=== PATIENT | female | born 1990 | race Hispanic/Latino ===

== ENCOUNTER 2019-09-07 12:08 | Outpatient (CLI) | payer BC, SELFPAY ==
[2019-09-07 13:14] LABS: Hematocrit 32.1 % (37.0-47.0); Hemoglobin 10.7 g/dL (12.0-15.0); Mean Corpuscular HGB Conc 33.3 g/dl (32-36); Mean Corpuscular Hemoglobin 31.5 pg (26-34); Mean Corpuscular Volume 94.4 fl (80-100); Mean Platelet Volume 11.5 fl (7.4-10.4); Platelet Count Result 237 k/mm3 (150-375); Red Cell Distribution Width 12.2 % (11.5-14.5); White Blood Count 9.8 K/mm3 (4.5-10.0)
[2019-09-07 13:39] LABS: Hepatitis B Surface Antigen Negative (Negative); Rubella IgG Antibody 2.9 IU/ML
[2019-09-07 13:43] LABS: HIV 1/2 Ab P24 Ag Result Negative (Negative)
[2019-09-09 07:40] LABS: Rapid Plasma Reagin Non-Reactive (NonReactive)
[2019-09-10 08:12] LABS: Varicella IgG Antibody <135.00 Index (>=165.00)
== END 2019-09-07 12:09 | disposition home or self-care (01) ==
PROVIDERS: PCP Obstetrics & Gynecology; Visit Provider Obstetrics & Gynecology
DX: N92.5 Other specified irregular menstruation (principal)
CPT/HCPCS: 36415; 85027; 86592; 86644; 86703; 86747; 86762; 86787; 86850; 86900; 86901; 87077; 87086; 87088; 87186; 87340; G0432

== ENCOUNTER 2019-09-12 11:13 | Outpatient (CLI) | payer BC, SELFPAY ==
--- NOTE | ~2019-09-12 | US_ITS ---
EXAMINATION: US OB /maternal detail DATE: 09/12/2019 12:36 INDICATION: Second trimester anatomic survey TECHNIQUE: Real-time ultrasound of the pelvis was performed. COMPARISON: None. FINDINGS: There is a single living fetus in vertex presentation. The placenta is posterior. heart rate is 154 beats per minute (bpm). cardiac activity and movement are noted. The amniotic fluid index is subjectively normal. The following anatomy was identified as normal: 4 chamber heart 3 vessel cord cord insertion kidneys urinary bladder stomach spine diaphragm ventricles cisterna magna cerebellum The following biometric data were obtained: Biparietal diameter (BPD): 6.6 cm; head circumference (HC): 25.1 cm; abdominal circumference (AC): 23 .7 cm; femur length (FL): 5.2 cm. These measurements are concordant. Estimated weight is 1140 g +/- 171 g, which correlates with the 11th percentile when 11/29/2019 i s used as estimated date of delivery. As single measurements, these parameters are each equal to the following estimated gestational ages w ith ranges of +/- 2 standard deviations: BPD: 26 weeks 6 days ( 24 weeks 5 days - 29 weeks 1 days). HC: 27 weeks 3 days ( 25 weeks 2 days - 29 weeks 3 days). AC: 28 weeks 0 days ( 25 weeks 6 days - 30 weeks 2 days). FL: 28 weeks 0 days ( 25 weeks 6 days - 30 weeks 1 days). estimated gestational age based solely on measurements from this exam is 27 weeks 4 days +/- 2 weeks 0 days. IMPRESSION: 1. Single living fetus in vertex presentation. 2. Estimated weight is 1140 g +/- 171 g, which correlates with the 11th percentile when 0 is used as estimated date of delivery. Reviewed, dictated and finalized at location A. IMPRESSION: 1. Single living fetus in vertex presentation. 2. Estimated weight is 1140 g +/- 171 g, which correlates with the 11th p ercentile when 11/29/2019 is used as estimated date of delivery.
== END 2019-09-12 11:14 | disposition home or self-care (01) ==
PROVIDERS: PCP Obstetrics & Gynecology; Visit Provider Obstetrics & Gynecology
DX: Z36.89 Encounter for other specified antenatal screening (principal); Z3A.00 Weeks of gestation of pregnancy not specified
CPT/HCPCS: 76805

== ENCOUNTER 2019-09-28 10:48 | Outpatient (CLI) | payer BC, SELFPAY ==
[2019-09-28 12:31] LABS: Hematocrit 31.3 % (37.0-47.0); Hemoglobin 10.3 g/dL (12.0-15.0)
[2019-09-28 12:46] LABS: Glucose 1 Hour PP 50gm Dose 114 mg/dL
[2019-09-28 13:26] LABS: HIV 1/2 Ab P24 Ag Result Negative (Negative)
== END 2019-09-28 10:49 | disposition home or self-care (01) ==
PROVIDERS: PCP Obstetrics & Gynecology; Visit Provider Obstetrics & Gynecology
DX: Z34.93 Encounter for supervision of normal pregnancy, unspecified, third trimester (principal)
CPT/HCPCS: 36415; 82947; 85014; 85018; 86703; G0432

== ENCOUNTER 2019-10-27 01:37 | Observation (INO) | payer BC, SELFPAY ==
[2019-10-27] VITALS (8 sets, daily range): BP systolic 110–123; BP diastolic 59–67; PULSE 86–106; TEMP 36.5–37.3; BMI 28.8
--- NOTE | ~2019-10-27 | US_ITS ---
EXAMINATION: US renal BI DATE: 10/27/2019 07:49 INDICATION: Right flank pain during . TECHNIQUE: Multiple ultrasound grayscale images of the kidneys were obtained. COMPARISON: None. FINDINGS: The right kidney measures 12.3 x 6.0 x 7.2 cm. The left kidney measures 10.7 x 5.3 x 6.1 cm. The kidn eys demonstrate normal echogenicity. There is mild right hydronephrosis. Mildly elevated right renal arterial resistive indices of 0.71-0.72. There is no hydronephrosis in the contralateral left kidney with normal left renal arterial resistive indices of 0.54-0.63. No stones identified. The bladder is normal with visualized left-sided ureteral jet but no right-sided ureteral jet observed by the sonogr apher over 5 minutes of imaging. IMPRESSION: 1. Mild right hydroureteronephrosis without evident nephrolithiasis. This could be due to either mas s effect on the ureter from the gravid uterus or nonvisualized stone. Reviewed, dictated and finalized at location A. IMPRESSION: 1. Mild right hydroureteronephrosis without evident nephrolithiasis. This coul d be due to either mass effect on the ureter from the gravid uterus or nonvisua lized stone.
[2019-10-27 02:16] LABS: Add Urine Microscopic? YES; Appearance Urine Cloudy (Clear); Bacteria Urine Trace /hpf; Bilirubin Urine Negative (Negative); Blood Urine 1+ (Negative); Color Urine Yellow (Yellow); Glucose Urine UA Negative (Negative); Ketones Urine Negative (Negative); Leukocyte Esterase Ur 3+ LEU/UL (NEGATIVE); Mucus Urine Rare /lpf; Nitrate Urine Positive (Negative); Protein Urine 3+ mg/dL (Negative); Specific Grav Ur 1.014 (1.001-1.035); Squamous Epithelial Cell Urine Occasional /hpf (Few); Urobilinogen Urine Negative mg/dL (<2.0); WBC Clumps Urine Present /HPF; WBC Urine >75 /hpf (0-3)
[2019-10-27] MEDS: MORPHINE SULFATE 2 MG/ML INJ 4 MG IV PUSH (02:53)
[2019-10-27] MEDS: LACTATED RINGERS 1,000 ML 125 ML IV CONT (02:54)
[2019-10-27 03:06] LABS: Basophils Percent Auto 0.1 % (0.2-1.2); Eosinophils Percent Auto 0.3 % (0-4.4); Hematocrit 29.4 % (37.0-47.0); Hemoglobin 9.5 g/dL (12.0-15.0); Immature Granulocyte Absolute 0.06 K/mm3 (0.00-0.031); Immature Granulocyte Percent A 0.4 % (0-0.5); Lymphocytes Absolute Auto 1.52 K/mm3 (0.9-3.2); Mean Corpuscular HGB Conc 32.3 g/dl (32-36); Mean Corpuscular Hemoglobin 29.8 pg (26-34); Mean Corpuscular Volume 92.2 fl (80-100); Mean Platelet Volume 11.3 fl (7.4-10.4); Monocytes Absolute Auto 0.9 K/mm3 (0.1-0.6); Monocytes Percent Auto 6.6 % (2.6-8.5); Neutrophils Absolute Auto 11.3 K/mm3 (1.3-6.7); Neutrophils Percent Auto 81.6 % (45.5-73.1); Platelet Count Result 206 k/mm3 (150-375); Red Blood Count 3.19 M/mm3 (4.2-5.4); Red Cell Distribution Width 12.4 % (11.5-14.5); White Blood Count 13.9 K/mm3 (4.5-10.0)
--- NOTE | 2019-10-27 03:12 | OBADM ---
This patient, Vero Ghosh, admitted to the OB room OB Post 116 for observation. Patient/family oriented to hospital policies and general routines including ID bracelet, bed and alarms, visiting hours, pain management, procedures, bathroom and other care routines, personal items, smoking policy, room service/diet, and visiting hours. Patient/Family are encouraged to report perceived risks to care and to ask questions if they do not understand what they are told or what they should do. 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 pt denies leaking fluid and bleeding. pt feeling movements.
[2019-10-27 03:21] LABS: Blood Urea Nitrogen 7 mg/dL (7-17); Calcium 8.3 mg/dL (8.4-10.2); Carbon Dioxide 23 mmol/L (22-30); Chloride 104 mmol/L (98-107); Estimated CRCL calculation 151 ml/min; Estimated Glomerular Filt Rate > 60; Glucose 90 mg/dL (65-105); Potassium 3.3 mmol/L (3.4-5.0); Sodium 135 mmol/L (137-145)
--- NOTE | 2019-10-27 07:51 | PC.NURSE ---
Pt back from U/S. Voided- urine strained. monitor reapplied. Pt given menu to order breakfast.
[2019-10-27] MEDS: LACTATED RINGERS 1,000 ML 999 ML IV CONT (09:12)
--- NOTE | 2019-10-28 21:16 | PM.OBTRLD ---
OB - Triage/Final Diagnosis Evaluation Laboratory results: Laboratory Tests 10/27/19 10/27/19 10/27/19 01:52 02:51 02:51 WBC 13.9 H RBC 3.19 L Hgb 9.5 L Hct 29.4 L MCV 92.2 MCH 29.8 MCHC 32.3 RDW 12.4 Plt Count 206 MPV 11.3 H Immature Gran % (Auto) 0.4 Neut % (Auto) 81.6 H Lymph % (Auto) 11.0 L [place] % (Auto) 6.6 Eos % (Auto) 0.3 Baso % (Auto) 0.1 L Lymph # (Auto) 1.52 [place] # (Auto) 0.9 H Eos # (Auto) 0.0 Baso # (Auto) 0.0 Abs Immat Gran (auto) 0.06 H Absolute Neuts (auto) 11.3 H Absolute Nucleated RBC 0.0 Nucleated RBC % 0.0 Sodium 135 L Potassium 3.3 L Chloride 104 Carbon Dioxide 23 BUN 7 Creatinine 0.50 L Estim Creat Clear Calc 151 Estimated GFR > 60 Glucose 90 Calcium 8.3 L Urine Color Yellow Urine Appearance Cloudy H Urine pH 6.0 Ur Specific [place] 1.014 Urine Protein 3+ H Urine Glucose (UA) Negative Urine Ketones Negative Ur Blood (Man) 1+ H Urine Nitrate Positive Urine Bilirubin Negative Urine Urobilinogen Negative Ur Leukocyte Esterase 3+ H Urine RBC 11-20 H Urine WBC >75 H Urine WBC Clumps Present H Ur Squamous Epith Cells Occasional Urine Bacteria Trace Urine Mucus Rare Final Diagnosis (1) UTI (urinary tract infection) in , antepartum: Code(s): O23.40 - Unspecified infection of urinary tract in , unspecified trimester Status: Acute
== END 2019-10-27 11:38 | disposition home or self-care (01) ==
PROVIDERS: Admitting Provider Obstetrics & Gynecology; Visit Provider Obstetrics & Gynecology
DX: O23.43 Unspecified infection of urinary tract in pregnancy, third trimester (principal); Z3A.32 32 weeks gestation of pregnancy
CPT/HCPCS: 36415; 76775; 80048; 81001; 85025; 87077; 87086; 87088; 87186; 96361; 96365; 96375; G0378; G0379; J0696; J2270; J7120

== ENCOUNTER 2019-10-28 13:01 | Outpatient (CLI) | payer BC, SELFPAY ==
--- NOTE | ~2019-10-28 | US_ITS ---
EXAMINATION: US OB follow up DATE: 10/28/2019 13:31 INDICATION: Routine care during third trimester . TECHNIQUE: Real-time ultrasound of the pelvis was performed. The interpreting radiologist was not pre sent for the study. COMPARISON: None. FINDINGS: There is a single living fetus in vertex presentation. The placenta is posterior. heart rate i s 126 beats per minute (bpm). The amniotic fluid index is 15.1 cm, which is normal (5th%-95%: 7.9-24 .9 cm at 35 weeks estimated gestational age). The following biometric data were obtained: BPD: 8.7 cm -> 35 weeks 2 days Head circumference: 31.0 cm -> 34 weeks 5 days Abdominal circumference: 32.2 cm -> 36 weeks 1 days Femur length: 6.6 cm -> 33 weeks 6 days These measurements are concordant. Head circumference to abdominal circumference ratio: 0.96 (normal range 0.93-1.11). Estimated weight: 2641 g (+/-) 396 g. or 5 lbs. 13 oz. (+/-) 14 oz. IMPRESSION: 1. Single living fetus in vertex presentation with heart rate of 126 bpm. 2. Gestational age by ultrasound of 35 weeks 0 day(s) +/- 2 week(s) 3 day(s) with ultrasound estimate d date of delivery (NOEMÍ) of 12/02/2019. Estimated weight is 44th percentile by Hadlock criteria when 11/29/2019 is used as the NOEMÍ. Please correlate with clinical information or earlier ultrasounds f or most accurate NOMEÍ. 3. Normal amniotic fluid index of 15.1 cm. Reviewed, dictated and finalized at location A. IMPRESSION: 1. Single living fetus in vertex presentation with heart rate of 126 bpm. 2. Gestational age by ultrasound of 35 weeks 0 day(s) +/- 2 week(s) 3 day(s) wi th ultrasound estimated date of delivery (NOEMÍ) of 12/02/2019. Estimated we ight is 44th percentile by Hadlock criteria when 11/29/2019 is used as the NOEMÍ. P lease correlate with clinical information or earlier ultrasounds for most accur ate NOEMÍ. 3. Normal amniotic fluid index of 15.1 cm.
== END 2019-10-28 13:02 | disposition home or self-care (01) ==
PROVIDERS: PCP Obstetrics & Gynecology; Visit Provider Obstetrics & Gynecology
DX: Z34.93 Encounter for supervision of normal pregnancy, unspecified, third trimester (principal); Z3A.35 35 weeks gestation of pregnancy
CPT/HCPCS: 76816

== ENCOUNTER 2019-11-23 15:11 | Outpatient (CLI) | payer BC, SELFPAY ==
[2019-11-23 15:31] VITALS: BP 117/78; PULSE 88
[2019-11-23 15:46] VITALS: BP 112/76; PULSE 94
[2019-11-23 16:16] VITALS: BP 112/76; PULSE 94
--- NOTE | 2019-11-24 09:51 | PM.OBTRLD ---
OB - Triage/Final Diagnosis Evaluation Vital signs: Vital Signs - 24 hr 11/23/19 15:31 11/23/19 15:46 11/23/19 16:16 Pulse Rate 88 94 94 Blood Pressure 117/78 112/76 Blood Pressure [Left Arm] 112/76 Final Diagnosis (1) False labor: Code(s): O47.9 - False labor, unspecified Status: Acute
== END 2019-11-23 15:55 | disposition home or self-care (01) ==
LOC: ANHOBOP 15:58 → ANHLDR 16:16
PROVIDERS: Visit Provider Obstetrics & Gynecology
DX: O26.859 Spotting complicating pregnancy, unspecified trimester (principal); Z3A.00 Weeks of gestation of pregnancy not specified
CPT/HCPCS: 59025; 84112; 99199

== ENCOUNTER 2019-12-02 16:48 | Observation (INO) | payer BC, SELFPAY ==
--- NOTE | 2019-12-02 18:00 | OBADM ---
This patient, Vero Ghosh, admitted to the OB room Labor/Delivery/Recovery 104 for observation. Patient/family oriented to hospital policies and general routines including ID bracelet, bed and alarms, visiting hours, pain management, procedures, bathroom and other care routines, personal items, smoking policy, room service/diet, and visiting hours. Patient/Family are encouraged to report perceived risks to care and to ask questions if they do not understand what they are told or what they should do.
[2019-12-02 19:50] VITALS: TEMP 36.9
--- NOTE | 2019-12-02 20:13 | PC.NURSE ---
Discharge instructions reviewed with patient. Patient states understanding of discharge instructions and is agreeable to discharge. Labor precautions reviewed. Patient states understanding and denies questions. Patient left ambulating at 2012.
--- NOTE | 2019-12-09 05:03 | PM.OBTRLD ---
OB - Triage/Final Diagnosis Visit Information Reason for evaluation: threatened labor
== END 2019-12-02 20:13 | disposition home or self-care (01) ==
PROVIDERS: Admitting Provider Obstetrics & Gynecology; Visit Provider Obstetrics & Gynecology
DX: O47.1 False labor at or after 37 completed weeks of gestation (principal); Z3A.40 40 weeks gestation of pregnancy
CPT/HCPCS: G0378; G0379

== ENCOUNTER 2019-12-05 06:51 | Inpatient (IN) | payer BC, SELFPAY ==
[2019-12-05] VITALS (33 sets, daily range): BP systolic 96–143; BP diastolic 52–102; PULSE 72–120; RESP 16–18; TEMP 36.2–37.2; O2SAT 100; BMI 30.9
[2019-12-05] MEDS: OXYTOCIN 30 UNITS/NS 500 ML 30 UNITS/500 ML BAG IV CONT ×2 (07:36→13:30)
[2019-12-05] MEDS: LACTATED RINGERS 1,000 ML 125 ML IV CONT (07:37)
[2019-12-05 07:53] LABS: Basophils Percent Auto 0.3 % (0.2-1.2); Eosinophils Percent Auto 0.3 % (0-4.4); Hematocrit 31.9 % (37.0-47.0); Hemoglobin 10.1 g/dL (12.0-15.0); Immature Granulocyte Absolute 0.03 K/mm3 (0.00-0.031); Immature Granulocyte Percent A 0.3 % (0-0.5); Lymphocytes Absolute Auto 2.14 K/mm3 (0.9-3.2); Lymphocytes Percent Auto 20.9 % (18.3-44.2); Mean Corpuscular HGB Conc 31.7 g/dl (32-36); Mean Corpuscular Hemoglobin 27.4 pg (26-34); Mean Corpuscular Volume 86.4 fl (80-100); Mean Platelet Volume 11.9 fl (7.4-10.4); Monocytes Absolute Auto 0.5 K/mm3 (0.1-0.6); Monocytes Percent Auto 4.6 % (2.6-8.5); Neutrophils Absolute Auto 7.5 K/mm3 (1.3-6.7); Neutrophils Percent Auto 73.6 % (45.5-73.1); Platelet Count Result 229 k/mm3 (150-375); Red Blood Count 3.69 M/mm3 (4.2-5.4); Red Cell Distribution Width 14.2 % (11.5-14.5); White Blood Count 10.2 K/mm3 (4.5-10.0)
--- NOTE | 2019-12-05 08:08 | LDADM ---
This patient, Vero Ghosh, was admitted to Labor/Delivery/Recovery 104 on 12/05/19 at 06:51. Plans for labor, pain management and were discussed with patient. Patient/family oriented to hospital policies and general routines including ID bracelet, bed and alarms, visiting hours, pain management, procedures, bathroom and other care routines, personal items, smoking policy, room service/diet and guest tray routines, infant security routines, and visiting hours. Patient/Family are encouraged to report perceived risks to care and to ask questions if they do not understand what they are told or what they should do. See OBIX for further documentation.
--- NOTE | 2019-12-05 08:31 | PM.IMHP ---
H&P: HPI History of Present Illness Date/Time: 12/05/19 08:31 Chief complaint: iol Narrative: Vero Ghosh is a 29 year old female at 40w6d presenting for elective induction of labor at term. She has been having intermittent contractions over the past several weeks. Cervix was 3cm in clinic. This morning she states she is feeling well. No issues or complaints. Review of Systems Constitutional: Constitutional: Reports no additional constitutional complaints Cardiovascular: Cardiovascular: Reports no additional cardiovascular complaints Respiratory: Respiratory: Reports no additional respiratory complaints Gastrointestinal: Gastrointestinal: Reports no additional gastrointestinal complaints Genitourinary: Genitourinary: Reports no additional female genitourinary complaints Musculoskeletal: Musculoskeletal: Reports no additional musculoskeletal complaints Psychiatric: Psychiatric: Reports no additional psychiatric complaints [facility] Family History Family History Other No pertinent family history Social History Social History Smoking status: Never smoker Substance use: never Gender identity (if verbalized by the patient): Female Spiritual care concerns: No Meds Home Medications and Allergies Home Medications Medication Instructions Recorded Confirmed Type PNV cmb#95-ferrous fumarate-FA 1 tablet PO DAILY 10/27/19 11/23/19 History [] Allergies Allergy/AdvReac Type Severity Reaction Status Date / Time No Known Allergies Allergy Verified 10/27/19 02:52 Vital Signs Vital Signs - 24 hr 12/05/19 07:15 12/05/19 07:16 12/05/19 07:30 Pulse Rate 116 H 120 H 101 H Blood Pressure 135/81 120/82 117/68 12/05/19 07:45 12/05/19 08:00 12/05/19 08:16 Pulse Rate 104 H 96 90 Blood Pressure 115/78 132/84 123/74 12/05/19 08:31 Pulse Rate 85 Blood Pressure 136/77 Exam Const: General: comfortable and no acute distress Resp: Effort & Inspection: normal respiratory effort Cardio: Rate: regular rate GI: Other: gravid : Other: cervical exam: 3/50/-3. AROM performed, clear fluid. Skin: General skin exam: normal color Psych: Mental Status: mental status grossly normal Affect: normal affect H&P: Results Labs Labs: Short CBC 12/05/19 Range/Units 07:33 WBC 10.2 H (4.5-10.0) K/mm3 Hgb 10.1 L (12.0-15.0) g/dL Hct 31.9 L (37.0-47.0) % Plt Count 229 (150-375) k/mm3 Assessment and Plan Assessment and plan (1) Post term over 40 weeks: Code(s): O48.0 - Post-term Status: Acute Assessment and Plan: Admit for elective term induction of labor Pitocin per protocol Does not desire epidural, but knows it is an option should she change her mind
--- NOTE | 2019-12-05 13:19 | PM.OBPRVD ---
OB - Delivery Note Procedure Delivery date: 12/05/19 Procedure: Spontaneous vaginal delivery complicated by shoulder dystocia events: No Care Intrapartal events: None Induction method: AROM and per pitocin protocol Delivery augmentation: rupture of membranes Delivery monitor: external FHT Route of delivery: (complciated with shoulder dystocia) Laceration description: Labial Delivery repair: vicryl Specimen: No Estimated blood loss (mL): 300 Anesthesia type: None Narrative: Once she was noted to be complete and ready to push, the labor bed was broken down and legs were placed in stirrups for support. With contractions and maternal efforts, the presented in OA position. The head was delivered. Checked for nuchal cord, no nuchal cord noted. Gentle downward traction was applied, however the anterior shoulder (left) did not deliver with the usual traction. Shoulder dystocia was diagnosed. McRobert's maneuver and suprapubic pressure was applied, and the anterior shoulder was delivered followed by the posterior shoulder and rest of the body. was vigorous and crying, so delayed cord clamping of approximately 1 minute was performed. The cord was clamped and cut. Cord gasses collected. Placenta was delivered spontaneously. IV oxytocin administered and fundal massage applied. Exam was performed to identify any lacerations. 1str degree perineal laceration was repaired with 2-0 Vicryl. Right labial laceration was noted but no repair was needed. Good hemostasis noted. Patient tolerated the procedure well. All instrument and sponge counts were correct at the end of the procedure. Baby Date of : 12/05/19 Time of : 12:50 Weeks of gestation at delivery: 40 Infant gender: Female Weight (pounds): 8 Weight (ounces): 9 presentation: vertex Placenta delivery description: Spontaneous cord vessel description: 3 Vessels score one minute: 9 score five minutes: 9
[2019-12-05] MEDS: BENZOCAINE 20% AER SPR (*SP) 56 GM CAN 1 SPRAY TOPICAL (14:52)
[2019-12-05] MEDS: WITCH HAZEL 40 PADS 1 PAD TOPICAL (14:52)
[2019-12-05] MEDS: IBUPROFEN 600 MG TABLET PO ×2 (14:52→23:10)
--- NOTE | 2019-12-05 15:48 | PC.NURSE ---
Patient transferred to post room #288 per wheelchair from labor and delivery. Support person present. Oriented to unit, room, information board, rooming in, admission packet and security measures. Patient verbalizes understanding.
[2019-12-06 05:18] LABS: Hematocrit 29.8 % (37.0-47.0); Hemoglobin 9.3 g/dL (12.0-15.0)
[2019-12-06 07:51] LABS: Rapid Plasma Reagin Non-Reactive (NonReactive)
[2019-12-06 08:15] VITALS: BP 106/63; PULSE 80; RESP 18; TEMP 37.1; O2SAT 98
[2019-12-06] MEDS: IBUPROFEN 600 MG TABLET PO ×3 (08:41→22:58)
[2019-12-06] MEDS: POLYSACCHARIDE IRON COMPLEX 150 MG CAPSULE PO ×2 (08:41→16:42)
[2019-12-06] MEDS: MULTIVIT/MIN/PREN/FOL AC/IRON TABLET 1 TAB PO (08:42)
--- NOTE | 2019-12-06 10:15 | PC.NURSE ---
Consulted with patient, mother reports she is using nipple shield for all feedings. Mother used the shield with first child for entire experience of several months. Mother states she has some tenderness with feedings and is on and off during feeding. Reviewed feeding cues, frequencies, duration of feedings, feeding elimination flow sheet, and signs of adequate intake. Demonstrated stimulation techniques to wake for feeding. Assisted with infant to breast without shield. Reviewed positioning/alignment in cross cradle, holding breast in U hold and guided asymmetrical latch on. Infant was unable to latch correctly, she is unable to draw nipple out and latch deeply. Discussed nipple shield precautions and possible complications. Instructions given on application and cleaning of shield. Patient able to return demonstration on proper application of shield. Discussed the need for regular pumping if continues to nurse with the shield. Patient verbalizes understanding. With shield in place, several attempts before infant was able to latch correctly. Infant keeps tongue up, advised mother to observe for tongue placement before attempting latch. Small amounts of formula to shield and drips to infant's mouth to entice to feed. Once on nursed eagerly, with steady draws and frequent swallowing noted. Reviewed signs of a correct latch, effective nursing and suck swallow ratio. Infant was able to maintain latch without discomfort to mother. Nipple care reviewed. Discussed pumping after each feeding using shield until mother's milk is well established and is gaining weight. Mother reports she is comfortable with pumping from first child. Reviewed pump care and usage, pumping schedule, nipple care, and collection and storage of breast milk. Encouraged [id number], breast massage and manual expression to stimulate supply.
--- NOTE | 2019-12-06 13:25 | PM.OBDSVD ---
DS: Admitting Diagnosis Admitting Diagnosis Admitting Diagnosis: iol OB - DS: Summary OB Procedures : None OB Procedures Intrapartum: Spontaneous Vag Delivery OB Procedures: : None Time Spent with Patient Time attestation: Total time spent providing and/or coordinating discharge services: DS: Data Data Completed and Pending Labs on day of discharge: Labs from last 24 hours 12/06/19 12/05/19 05:08 07:33 Hgb 9.3 L Hct 29.8 L RPR Non-reactive Discharge Plan Discharge Discharging Clinician: Jayy Ricks Patient Disposition: Home, Self-Care Activity: as tolerated Diet: as tolerated Patient Instructions: Antibiotic Form Stand Alone Forms: General Discharge Information Follow-up/Referrals: Homero May DO [Physician] - 3 Weeks Discharge Medications: New ibuprofen 600 mg Tablet 600 mg PO Q6H PRN (Reason: Cramping) Qty: 30 RF: 0 Continued PNV cmb#95-ferrous fumarate-FA [] 28 mg iron- 800 mcg Tablet 1 tablet PO DAILY RF: 0 Date of admission: 12/05/19 06:51 Primary Care Provider: PHYSICIAN,REFERRAL AND INFORMATION AIDE Admitting Provider: Homero May Attending physician on admission: Homero May
[2019-12-06 20:30] VITALS: BP 101/63; PULSE 91; RESP 16; TEMP 36.8; O2SAT 99
[2019-12-07] MEDS: IBUPROFEN 600 MG TABLET PO (05:04)
[2019-12-07] MEDS: MULTIVIT/MIN/PREN/FOL AC/IRON TABLET 1 TAB PO (08:22)
[2019-12-07] MEDS: POLYSACCHARIDE IRON COMPLEX 150 MG CAPSULE PO (08:22)
[2019-12-07] MEDS: MEASLES,MUMPS,RUBELLA VACCINE 0.5 ML VIAL SUB-Q (08:23)
[2019-12-07] MEDS: TETANUS,DIPHTHERIA,AC PERTUSSIS ADULT (0.5 ML) BOOSTRIX IM (08:23)
[2019-12-07 08:45] VITALS: BP 122/74; PULSE 86; RESP 18; TEMP 36.6; O2SAT 98
--- NOTE | 2019-12-07 11:00 | PC.NURSE ---
Patient viewed the discharge video Mother & Baby Care, The First Two Weeks . Patient was given the opportunity and encouraged to ask questions. Patient verbalized understanding of information shared and has been given the mother/baby guide for home reference.
[2019-12-09 10:52] VITALS: BP 111/65; PULSE 84; RESP 16; TEMP 36.9; O2SAT 100
--- NOTE | 2019-12-12 17:08 | P.DS_ITS ---
DS: Admitting Diagnosis Admitting Diagnosis Admitting Diagnosis: iol OB - DS: Summary OB Procedures : None OB Procedures Intrapartum: Spontaneous Vag Delivery OB Procedures: : None Time Spent with Patient Time attestation: Total time spent providing and/or coordinating discharge services: Discharge Plan Discharge Discharging Clinician: Jayy Ricks Patient Disposition: Home, Self-Care Activity: as tolerated Diet: as tolerated Discharge Instructions: Education: Mom and Baby Guide and Preeclampsia Handout Given to: Mother Follow-Up: Call your delivering provider's office for an appointment to be seen in: 3 weeks Mom and baby should come to the [facility] for the follow-up appointment. Appointment Date/Time: December 09, 2019 at 11:00 am What to expect at your follow-up visit: Physical Assessment Call [phone] if you are unable to keep your appointment time. BREAST CARE: * Wear a snug supportive bra. * For engorgement discomfort: Breast Feeding: * Apply warm moist washcloths * Express milk as needed to relieve engorgement * Wear loose clothing Bottle Feeding: * May apply ice packs * For sore nipples: * Identify correct latch-on * Apply warm moist washcloths before and after nursing * Air dry nipples after nursing * May apply Lansinoh cream to nipples EPISIOTOMY/PERINEAL CARE: * Until bleeding stops, use your douglas bottle after urinating * Change your pad frequently throughout the day * You may take sitz baths several times a day (fill your bathtub with warm water and soak for 20 minutes.) Do NOT bathe in the water * No tub baths until seen by your physician - You may shower ACTIVITY: * Rest as much as possible. * Do not exercise or lift anything heavier than your baby (such as laundry or other children.) * Avoid stairs or driving as much as possible. * Do not put anything into the vagina. No douching, tampons, or sexual activity until seen by physician. NOTIFY PHYSICIAN IF YOU HAVE ANY QUESTIONS OR IF ANY OF THE FOLLOWING SYMPTOMS OCCUR: * If your episiotomy or incision becomes red, swollen, or more painful than what you have experienced in the hospital. * If your vaginal bleeding becomes foul smelling. * If your vaginal bleeding becomes more heavy than a period or if your bleeding changes from pink to bright red. However, you may pass an occasional walnut- sized clot once or twice for the first week . * If you experience a sharp, shooting pain in you calves. * If you discover a hard, reddened area on your breast or if you experience flu- like symptoms. DIET: * Eat regular, well-balanced meals. * Drink plenty of fluids daily. If , drink to thirst. Stand Alone Forms: General Discharge Information Follow-up/Referrals: Homero May DO [Physician] - 3 Weeks Discharge Medications: New ibuprofen 600 mg Tablet 600 mg PO Q6H PRN (Reason: Cramping) Qty: 30 RF: 0 Continued PNV cmb#95-ferrous fumarate-FA [] 28 mg iron- 800 mcg Tablet 1 tablet PO DAILY RF: 0 Date of admission: 12/05/19 06:51 Primary Care Provider: PHYSICIAN,TRACTOR OPERATOR [employer]ER LEVELING Admitting Provider: Homero May Discharge Date/Time: 12/07/19 12:21 Attending physician on admission: Jayy Ricks
== END 2019-12-07 12:21 | disposition home or self-care (01) | DRG 560 ==
LOC: ANHOB2 12-07 10:38 → ANHLDR 12-09 11:28 → ANHOB2 12-09 11:28
PROVIDERS: Admitting Provider Obstetrics & Gynecology; Visit Provider Obstetrics & Gynecology
DX: O48.0 Post-term pregnancy (principal); Z3A.40 40 weeks gestation of pregnancy; Z37.0 Single live birth; O70.0 First degree perineal laceration during delivery; O66.0 Obstructed labor due to shoulder dystocia
CPT/HCPCS: 36415; 85014; 85018; 85025; 86592; 86850; 86900; 86901; 90710; 90715; A9270; J2590; J7120

== ENCOUNTER 2021-04-29 12:19 | Emergency (ER) | payer BC, SELFPAY ==
--- NOTE | ~2021-04-29 | CT_ITS ---
EXAMINATION: CT abdomen pelvis w con DATE: 04/29/2021 15:52 INDICATION: Nausea and vomiting. Diarrhea. TECHNIQUE: Computed tomography (CT) of the abdomen and pelvis was performed with 100 mL Omnipaque 350 intravenous contrast. Automated exposure control and iterative reconstruction technique were employe d. The dose-length product was 304.93 mGy-cm. COMPARISON: None. FINDINGS: The visualized portions of the lung bases are clear without pneumonia or pleural effusion. The heart size is normal. No pericardial effusion. The liver demonstrates focal steatosis adjacent to the falciform ligament. The spleen, gallbladder, pancreas, adrenal glands, and kidneys are normal. T here are no dilated loops of bowel. The appendix is normal. There are no pathologically enlarged lymp h nodes. There is physiologic fluid in the pelvis. The bones are unremarkable. IMPRESSION: 1. No etiology for the patient's symptoms. Reviewed, dictated and finalized at location A. [employer]
[2021-04-29 12:23] VITALS: BP 128/64; PULSE 92; RESP 18; TEMP 36.3; O2SAT 100
[2021-04-29 14:06] VITALS: BP 116/75; PULSE 90; RESP 20; O2SAT 97
[2021-04-29] MEDS: ONDANSETRON INJ 4 MG/2 ML VIAL IV PUSH (14:24)
--- NOTE | 2021-04-29 14:29 | ED.NAVMDI ---
HPI - Nausea/Vomiting/Diarrhea General Chief complaint: Nausea/Vomiting/Diarrhea Stated complaint: n/v since last mon. Time Seen by Provider: 04/29/21 14:07 Source: patient Mode of arrival: ambulatory Limitations: no limitations History of Present Illness HPI Narrative: This is a 30 year old female that presents to the ER for nausea and vomiting present x 1 weeks. Also reports fatigue. Denies fever, abdominal pain, dysuria, hematuria, or hematochezia. Related Data Home Medications Medication Instructions Recorded Confirmed PNV cmb#95-ferrous fumarate-FA 1 tablet PO DAILY 10/27/19 11/23/19 [] Allergies Allergy/AdvReac Type Severity Reaction Status Date / Time No Known Allergies Allergy Verified 10/27/19 02:52 Review of Systems Review of Systems: CONSTITUTIONAL: Denies fever GASTROINTESTINAL: Reports nausea and vomiting. Denies abdominal pain, or diarrhea. GENITOURINARY: Denies dysuria or hematuria. All systems reviewed & are unremarkable except as noted in HPI and below PMFSH Past Medical History Medical History (Updated 04/29/21 @ 17:02 by Jodi Bradshaw PA-C) No active medical problems Family History Family History Other No pertinent family history Social History Social History Smoking status: Never smoker Substance use: never Gender identity (if verbalized by the patient): Female Spiritual care concerns: No Exam Narrative: GENERAL: Well-appearing, well-nourished, and in no acute distress. HEAD: Normocephalic, atraumatic. EYES: EOMI. CHEST: Clear to auscultation. No respiratory distress. No wheezes rales or rhonchi HEART: Regular rate and rhythm. No murmur heard. Normal peripheral pulses. ABDOMEN: Soft, nontender, nondistended, normal active bowel sounds. No CVA tenderness EXTREMITIES: Normal range of motion. No edema. SKIN: Warm, dry, no rash. NEURO: No focal deficits. Alert and oriented x3. PSYCH: Normal mood and affect Course Vital Signs Vital signs: Vital Signs Temperature 97.3 F L 04/29/21 12:23 Pulse Rate 92 04/29/21 12:23 Respiratory Rate 18 04/29/21 12:23 Blood Pressure 128/64 04/29/21 12:23 Pulse Oximetry 100 04/29/21 12:23 Temperature 97.3 F L 04/29/21 12:23 Pulse Rate 65 04/29/21 15:30 Respiratory Rate 18 04/29/21 15:30 Blood Pressure 94/52 L 04/29/21 15:30 Pulse Oximetry 100 04/29/21 15:30 MDM - Nausea/Vomiting/Diarrhea MDM Narrative Medical decision making narrative: Patient presents to the emergency department for nausea and vomiting present over the last week. She is afebrile and nontoxic-appearing. CBC and metabolic panel without concerning findings. Lipase is normal. UA with evidence of dehydration and urinary tract infection. Bedside test is negative. CT scan of the abdomen and pelvis without acute findings. Patient hydrated in the ED given antiemetic with relief. Given first dose of antibiotics IV. Able to tolerate p.o. challenge. She is stable and felt appropriate for further outpatient evaluation. She was given warnings to return to the ER Lab Data Attestation: I reviewed the patient's lab results. Result diagrams: 04/29/21 14:24 04/29/21 14:24 Labs: Lab Results 04/29/21 04/29/21 04/29/21 Range/Units 14:24 14:24 14:24 WBC 8.9 (4.5-10.0) K/mm3 RBC 4.64 (4.2-5.4) M/mm3 Hgb 14.1 D (12.0-15.0) g/dL Hct 42.6 (37.0-47.0) % MCV 91.8 (80-100) fl MCH 30.4 (26-34) pg MCHC 33.1 (32-36) g/dl RDW 12.9 (11.5-14.5) % Plt Count 224 (150-375) k/mm3 MPV 12.2 H (7.4-10.4) fl Immature Gran % (Auto) 0.2 (0-0.5) % Neut % (Auto) 79.8 H (45.5-73.1) % Lymph % (Auto) 16.6 L (18.3-44.2) % [place] % (Auto) 2.9 (2.6-8.5) % Eos % (Auto) 0.1 (0-4.4) % Baso % (Auto) 0.4 (0.2-1.2) % Lymph # (Auto) 1.48 (0.9-3.2) K/mm3 [place] # (Auto) 0.3 (0.1-0.6)
[2021-04-29] MEDS: SODIUM CHLORIDE 0.9% IV 1,000 ML 999 ML IV CONT ×2 (14:34→15:42)
[2021-04-29 14:48] LABS: Basophils Percent Auto 0.4 % (0.2-1.2); Eosinophils Percent Auto 0.1 % (0-4.4); Hematocrit 42.6 % (37.0-47.0); Hemoglobin 14.1 g/dL (12.0-15.0); Immature Granulocyte Absolute 0.02 K/mm3 (0.00-0.031); Immature Granulocyte Percent A 0.2 % (0-0.5); Lymphocytes Absolute Auto 1.48 K/mm3 (0.9-3.2); Lymphocytes Percent Auto 16.6 % (18.3-44.2); Mean Corpuscular HGB Conc 33.1 g/dl (32-36); Mean Corpuscular Hemoglobin 30.4 pg (26-34); Mean Corpuscular Volume 91.8 fl (80-100); Mean Platelet Volume 12.2 fl (7.4-10.4); Monocytes Absolute Auto 0.3 K/mm3 (0.1-0.6); Monocytes Percent Auto 2.9 % (2.6-8.5); Neutrophils Absolute Auto 7.1 K/mm3 (1.3-6.7); Neutrophils Percent Auto 79.8 % (45.5-73.1); Platelet Count Result 224 k/mm3 (150-375); Red Blood Count 4.64 M/mm3 (4.2-5.4); Red Cell Distribution Width 12.9 % (11.5-14.5); White Blood Count 8.9 K/mm3 (4.5-10.0)
[2021-04-29 15:01] LABS: Alanine Aminotransferase 16 U/L (4-35); Albumin Level 5.1 g/dL (3.5-5.1); Alkaline Phosphatase 100 U/L (38-126); Anion Gap 11 mmol/L (8-16); Aspartate Amino Transferase 26 U/L (14-36); Bilirubin,Total 0.7 mg/dL (0.2-1.3); Blood Urea Nitrogen 11 mg/dL (7-17); Calcium 9.5 mg/dL (8.4-10.2); Carbon Dioxide 26 mmol/L (22-30); Chloride 104 mmol/L (98-107); Estimated CRCL calculation 85 ml/min; Estimated Glomerular Filt Rate > 60; Glucose 92 mg/dL (65-110); Lipase 142 U/L (23-300); Potassium 3.5 mmol/L (3.4-5.0); Sodium 141 mmol/L (137-145)
[2021-04-29 15:14] LABS: Add Urine Microscopic? YES; Appearance Urine Cloudy (Clear); Bacteria Urine 1+ /hpf; Bilirubin Urine Negative (Negative); Blood Urine Negative (Negative); Color Urine Amber (Yellow); Glucose Urine UA Negative (Negative); Ketones Urine 2+ mg/dL (Negative); Leukocyte Esterase Ur Trace LEU/UL (Negative); Mucus Urine Few /lpf; Nitrate Urine Positive (Negative); Protein Urine 1+ mg/dL (Negative); Specific Grav Ur 1.026 (1.001-1.035); Squamous Epithelial Cell Urine Few /hpf (Few); WBC Urine 21-30 /hpf
[2021-04-29 15:30] VITALS: BP 94/52; PULSE 65; RESP 18; O2SAT 100
== END 2021-04-29 17:10 | disposition home or self-care (01) ==
PROVIDERS: Physician Assistant; Emergency Provider Emergency Medicine
DX: N30.00 Acute cystitis without hematuria (principal); R11.2 Nausea with vomiting, unspecified
CPT/HCPCS: 36415; 74177; 80053; 81001; 81025; 83690; 85025; 87077; 87086; 87088; 87186; 96361; 96365; 96375; 99284; J0696; J2405; J7030; Q9967

== ENCOUNTER 2024-03-02 15:33 | Emergency (ER) | payer BC, SELFPAY ==
--- NOTE | ~2024-03-02 | XR_ITS ---
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 RESULT: Lines, tubes, and devices: None. Lungs and pleura: Clear. Cardiomediastinal silhouette: Normal. Other: No acute osseous or upper abdominal finding. IMPRESSION: No acute cardiopulmonary process. Reviewed, dictated and finalized at location K. T [facility]
[2024-03-02 15:47] VITALS: BP 115/62; PULSE 90; RESP 16; TEMP 36.1; O2SAT 100
[2024-03-02 15:55] VITALS: BP 106/65; O2SAT 99
[2024-03-02 16:00] VITALS: BP 101/66; O2SAT 97
--- NOTE | 2024-03-02 16:09 | ED_ITS ---
HPI - General Adult General Chief complaint: Nausea/Vomiting/Diarrhea Stated complaint: vomiting, headache Time Seen by Provider: 03/02/24 15:52 History of Present Illness HPI narrative: 33-year-old female presents to the emergency department for evaluation for persistent nausea vomiting and headache. Patient reports she started developing symptoms last night that persisted. Patient is approximately 15 weeks . Patient initially started with having some sinus pressure and congestion that then progressed to headache with dizziness and nausea vomiting. Patient states last night she did have some abdominal cramping but denies any current abdominal cramping. Patient denies any vaginal bleeding vaginal discharge. Patient states he does not have a significant history headaches. Patient states this is her 3rd . Patient has no complications with this curren t . Patient follows up with Dr. Landaverde Related Data Home Medications Medication Instructions Recorded Confirmed vit no.95-ferrous 1 tablet PO DAILY 10/27/19 11/23/19 fumarate 28 mg-folic acid 800 mcg tablet () Allergies Allergy/AdvReac Type Severity Reaction Status Date / Time No Known Allergies Allergy Verified 06/23/21 15:46 Review of Systems Review of Systems: All systems reviewed & are unremarkable except as noted in HPI and below PMFSH Past Medical History Medical History (Updated 03/02/24 @ 17:57 by Saw Dillon MD) No active medical problems Family History Family History (System 06/23/21 @ 15:46 by Gama Christianson) Other No pertinent family history Social History Social History (System 06/23/21 @ 15:46 by Gama Christianson) Smoking status: Never smoker Substance use: never Gender identity (if verbalized by the patient): Female Spiritual care concerns: No Exam Narrative: APPEARANCE: Well appearing, no pain, no distress, well-nourished. HEAD: normocephalic, atraumatic. tenderness to sinuses with palpation EYES: PERRLA/EOMI, conjunctivae clear. NOSE: Normal no drainage EARS:TMS clear with good light reflex. THROAT: Pharynx clear, no exudate. NECK: Supple. No adenopathy, no masses. RESPIRATORY: Airway patent, respirations nonlabored. Clear to auscultation bilaterally, no rales, rhonchi, wheezing. CARDIOVASCULAR: Regular rate and rhythm without murmurs rubs or gallops. ABDOMINAL: Soft, nontender, nondistended, normal bowel sounds MUSCULOSKELETAL: Moves all extremities. Strength/ROM intact, No edema, No calf tenderness. NEURO: Alert. Cranial nerves II through XII intact. grossly intact SKIN: Warm, dry. Normal Color Course Vital Signs Vital signs: Vital Signs Temperature 97 F L 03/02/24 15:47 Pulse Rate 90 03/02/24 15:47 Respiratory Rate 16 03/02/24 15:47 Blood Pressure 115/62 03/02/24 15:47 Pulse Oximetry 100 03/02/24 15:47 Oxygen Delivery Room Air 03/02/24 15:47 Temperature 97 F L 03/02/24 15:47 Pulse Rate 78 03/02/24 18:09 Respiratory Rate 15 03/02/24 18:09 Blood Pressure 100/64 03/02/24 18:09 Pulse Oximetry 100 03/02/24 18:09 Oxygen Delivery Room Air 03/02/24 15:47 Medical Decision Making MDM Narrative Medical decision making narrative: 33-year-old female present to the emergency department for evaluation for headache. Patient does still complain of sinus congestion. Patient declined any medications for symptom control. Patient is afebrile with no leukocytosis and a stable hemoglobin 11.5. Patient has no significant abnormalities on her CMP UA was negative for infection. Patient was negative for influenza RSV and for COVID. Chest x-ray showed no acute cardiopulmonary abnormality. Patient family updated on the results of the workup and symptomatic treatment for home. Patient was updated on reasons to return to the emergency department. [facility]. Differential Diagnosis Differential Diagnosis: His headache, migraine, dehydration, UTI, COVID, influenza, RSV, sinusitis Vital Signs Vital Signs: Vital Signs Temperature 97 F L 03/02/24 15:47 Pulse Rate 90 03/02/24 15:47 Respiratory Rate 16 03/02/24 15:47 Blood Pressure 115/62 03/02/24 15:47 Pulse Oximetry 100 03/02/24 15:47 Oxygen Delivery Room Air 03/02/24 15:47 Temperature 97 F L 03/02/24 15:47 Pulse Rate 78 03/02/24 18:09 Respiratory Rate 15 03/02/24 18:09 Blood Pressure 100/64 03/02/24 18:09 Pulse Oximetry 100 03/02/24 18:09 Oxygen Delivery Room Air 03/02/24 15:47 Lab Data Lab results reviewed: Yes I reviewed the patient's lab results. 03/02/24 16:33 03/02/24 16:33 Labs: Lab Results 03/02/24 03/02/24 Range/Units 16:33 16:34 WBC 9.6 (4.5-10.0) K/mm3 RBC 3.61 L (4.2-5.4) M/mm3 Hgb 11.5 L (12.0-15.0) g/dL Hct 33.6 L (37.0-47.0) % MCV 93.1 (80-100) fl MCH 31.9 (26-34) pg MCHC 34.2 (32-36) g/dl RDW 12.5 (11.5-14.5) % Plt Count 178 (150-375) k/mm3 MPV 11.4 H (7.4-10.4) fl Immature Gran % (Auto) 0.2 (0-0.5) % Neut % (Auto) 81.3 H (45.5-73.1) % Lymph % (Auto) 12.3 L (18.3-44.2) % [place] % (Auto) 5.8 (2.6-8.5) % Eos % (Auto) 0.2 (0-4.4) % Baso % (Auto) 0.2 (0.2-1.2) % Lymph # (Auto) 1.17 (0.9-3.2) K/mm3 [place] # (Auto) 0.6 (0.1-0.6) K/mm3 Eos # (Auto) 0.0 (0-0.3) K/mm3 Baso # (Auto) 0.0 (0.0-0.1) K/mm3 Abs Immat Gran (auto) 0.02 (0.00-0.031) K/mm3 Absolute Neuts (auto) 7.8 H (1.3-6.7) K/mm3 Absolute Nucleated RBC 0.000 (0.0-0.012) K/mm3 Nucleated RBC % 0.0 (0.0-0.2) % Sodium 135 L (137-145) mmol/L Potassium 4.0 (3.4-5.0) mmol/L Chloride 104 (98-107) mmol/L Carbon Dioxide 23 (22-30) mmol/L Anion Gap 8 (4-12) mmol/L BUN 6 L D (7-17) mg/dL Creatinine 0.60 L (0.7-1.0) mg/dL Estim Creat Clear Calc 108 ml/min Estimated GFR > 60 (59 - ) Glucose 83 (65-110) mg/dL Calcium 8.8 (8.4-10.2) mg/dL Total Bilirubin 0.3 (0.2-1.3) mg/dL AST 19 (14-36) U/L ALT 11 (6-35) U/L Alkaline Phosphatase 70 (38-126) U/L Total Protein 7.0 (6.3-8.2) g/dL Albumin 3.8 (3.5-5.1) g/dL Urine Color Yellow (Yellow) Urine Appearance Clear (Clear) Urine pH 7.5 (5.0-9.0) Ur Specific [place] 1.015 (1.001-1.035) Urine Protein Negative (Negative) mg/dL Urine Glucose (UA) Negative (Negative) mg/dL Urine Ketones 3+ H (Negative) mg/dL Ur Blood (Man) Negative (Negative) Urine Nitrate Negative (Negative) Urine Bilirubin Negative (Negative) Urine Urobilinogen 1.0 (<2.0) mg/dL Add Ur Microanalysis Reviewed Leukocyte Esterase Rfl 1+ H (Negative) DEL/UL Urine RBC 3-5 H (0-2) /hpf Urine WBC 0-5 (0-3) /hpf Ur Squamous Epith Cells Few (Few) /hpf Urine Bacteria None seen /hpf Urine Casts 0-2 Influenza A (RT-PCR) Negative (Negative) Influenza B (RT-PCR) Negative (Negative) RSV (RT-PCR) Negative (Negative) SARS-CoV-2 RNA (RT-PCR) Negative (Negative) Discharge Plan Discharge Clinical Impression: Headache Patient Disposition: Home, Self-Care Condition: Stable Instructions: Antibiotic Form, Viral Syndrome (ED) Additional Instructions: Have close follow-up with your primary care physician. Have close follow-up with OB [facility]. If you have any worsening symptoms then please call or return to the emergency department. Prescriptions: No Action PNV cmb#95-ferrous fumarate-FA [] 28 mg iron- 800 mcg Tablet 1 tablet PO DAILY ibuprofen 600 mg Tablet 600 mg PO Q6H PRN (Reason: Cramping) Qty: 30 0RF ondansetron 4 mg tablet,disintegrating 4 mg PO Q8H PRN (Reason: nausea and vomiting) Qty: 14 0RF cefdinir 300 mg capsule 300 mg PO Q12H 7 Days Qty: 14 0RF Follow-up/Referrals: Sharath Landaverde MD [Primary Care Provider] -
[2024-03-02] MEDS: SODIUM CHLORIDE 0.9% IV 1,000 ML 999 ML IV CONT (16:37)
[2024-03-02] MEDS: ONDANSETRON INJ 4 MG/2 ML VIAL IV PUSH (16:37)
[2024-03-02 16:40] LABS: Basophils Percent Auto 0.2 % (0.2-1.2); Eosinophils Percent Auto 0.2 % (0-4.4); Hematocrit 33.6 % (37.0-47.0); Hemoglobin 11.5 g/dL (12.0-15.0); Immature Granulocyte Absolute 0.02 K/mm3 (0.00-0.031); Immature Granulocyte Percent A 0.2 % (0-0.5); Lymphocytes Absolute Auto 1.17 K/mm3 (0.9-3.2); Lymphocytes Percent Auto 12.3 % (18.3-44.2); Mean Corpuscular HGB Conc 34.2 g/dl (32-36); Mean Corpuscular Hemoglobin 31.9 pg (26-34); Mean Corpuscular Volume 93.1 fl (80-100); Mean Platelet Volume 11.4 fl (7.4-10.4); Monocytes Absolute Auto 0.6 K/mm3 (0.1-0.6); Monocytes Percent Auto 5.8 % (2.6-8.5); Neutrophils Absolute Auto 7.8 K/mm3 (1.3-6.7); Neutrophils Percent Auto 81.3 % (45.5-73.1); Platelet Count Result 178 k/mm3 (150-375); Red Blood Count 3.61 M/mm3 (4.2-5.4); Red Cell Distribution Width 12.5 % (11.5-14.5); White Blood Count 9.6 K/mm3 (4.5-10.0)
[2024-03-02 16:45] VITALS: BP 106/64; O2SAT 98
[2024-03-02 16:52] LABS: Add Urine Microscopic? YES; Appearance Urine Clear (Clear); Bacteria Urine None Seen /hpf; Bilirubin Urine Negative (Negative); Blood Urine Negative (Negative); Color Urine Yellow (Yellow); Glucose Urine UA Negative (Negative); Ketones Urine 3+ mg/dL (Negative); Leukocyte Esterase Ur 1+ LEU/UL (Negative); Need Manual Microscopic Reviewed; Nitrate Urine Negative (Negative); Non Pathogenic Casts 0-2; Protein Urine Negative (Negative); Specific Grav Ur 1.015 (1.001-1.035); Squamous Epithelial Cell Urine Few /hpf (Few); WBC Urine 0-5 /hpf (0-3); pH Urine 7.5 (5.0-9.0)
[2024-03-02 16:52] LABS: Alanine Aminotransferase 11 U/L (6-35); Albumin Level 3.8 g/dL (3.5-5.1); Alkaline Phosphatase 70 U/L (38-126); Anion Gap 8 mmol/L (4-12); Aspartate Amino Transferase 19 U/L (14-36); Bilirubin,Total 0.3 mg/dL (0.2-1.3); Blood Urea Nitrogen 6 mg/dL (7-17); Calcium 8.8 mg/dL (8.4-10.2); Carbon Dioxide 23 mmol/L (22-30); Chloride 104 mmol/L (98-107); Estimated CRCL calculation 108 ml/min; Estimated Glomerular Filt Rate > 60; Glucose 83 mg/dL (65-110); Sodium 135 mmol/L (137-145)
[2024-03-02 17:17] LABS: Influenza A QL RT-PCR Negative (Negative); Influenza B QL RT-PCR Negative (Negative); RSV RNA, RT-PCR Negative (Negative); SARS-CoV-2 RNA PCR Negative (Negative)
[2024-03-02 18:09] VITALS: BP 100/64; PULSE 78; RESP 15; O2SAT 100
== END 2024-03-02 18:11 | disposition home or self-care (01) ==
PROVIDERS: Emergency Provider Emergency Medicine; PCP Obstetrics & Gynecology
DX: O26.892 Other specified pregnancy related conditions, second trimester (principal); R51.9 Headache, unspecified; Z20.822 Contact with and (suspected) exposure to COVID-19; Z3A.15 15 weeks gestation of pregnancy
CPT/HCPCS: 36415; 71045; 80053; 81001; 85025; 87086; 87637; 96361; 96374; 99284; J2405; J7030

== ENCOUNTER 2024-08-11 22:00 | Outpatient (CLI) | payer BC, SELFPAY ==
--- OUTSIDE RECORDS SUMMARY | 2024-08-11 22:07 | XMS_ITS | Data Portability ---
Author Organization [facility] [place] Address [address] [place] [address] [place] [address] Assessment Encounter Date Assessment Date Assessment LastModified by Organization Details LastModified Time 07/10/2024 07/10/2024 Patient is ___weeks . Discussed plan. Not available 07/10/2024 14:47:24 07/25/2024 07/25/2024 Patient is ___weeks . Discussed plan. Not available 07/25/2024 14:25:14 08/02/2024 08/02/2024 Patient is _36__weeks . Discussed plan. [email or web address] Not available 08/02/2024 14:18:41 08/09/2024 08/09/2024 Patient is ___weeks . Discussed plan. [email or web address] Not available 08/09/2024 13:03:07 Plan of Treatment Reminders Order Date Submit Date Provider Last Modified By Organization Details Last Modified Time Details Appointments OB ROUTINE 2024 01:15P Maryanne Humphrey CNM Not available Not available Not available Lab None recorded . Referral None recorded . Procedures None recorded . Surgeries None recorded . Imaging US, obstetri c, follow-u p 2024 025 [email or web address] [place], [address], [address], [place], [address], 07/11/2024 20:59:59 Medication Orders None recorded . Patient TargetsNo targets recorded. Patient InstructionsNo instructions recorded. Reason for Referral None Reported. Results Created Date Observation Date Name Description Value Unit Range Abnormal Flag Note LastModifiedBy Organization Detail LastModifiedTime 06/25/1906/24/2024 CULTU RE: URINE result report SEE RESULT S BELOW abnormal Test: Cultu re: Urine Speci men Sourc e: Urine - Clean Catch Speci men Type: Urine Speci men Date: 025 1500 Resul t Date: 025 1136 Resul t Statu s: Final resul t Abnor mal: Yes Resul ting Lab: [facility] [address] [facility] [address] Tel: CULTU RE ----- ----- ----- --- >100, 000 CFU/m l Enter ococc us faeca lis (Abno rmal) Amoxi cilli n PO or ampic illin IV are predi ctabl y relia ble for treat ment of enter ococc al cysti tis, inclu ding ampic illin -resi stant VRE, and may be consi dered as treat ment. Do not use for ampic illin -resi stant pyelo nephr itis or bacte remia . SUSCE PTIBI LITY ----- ----- ----- --- Enter ococc us faeca lis METHO D THOMAS ----- ----- ---- ----- ----- ----- ----- ---- AMPIC ILLIN <=2 ug/mL Susce ptibl e CIPRO FLOXA JOEL 2 ug/mL Inter media te NITRO FURAN TOIN <=32 ug/mL Susce ptibl e VANCO MYCIN 1 ug/mL Susce ptibl e Not Available [facility] (Lab) [address], [place], [address], 06/27/2024 12:40:31 06/25/19 25 06/24/2024 urina lysis , dipst ick Leukocytes trace Not Available [facility] [address], [place], [address], 06/24/2024 15:44:58 06/25/19 25 06/24/2024 urina lysis , dipst ick Protein + Not Available [place] [address], [place], [address], 06/24/2024 15:44:58 06/25/19 25 06/24/2024 urina lysis , dipst ick pH 7 Not Available [place] [address], [place], [address], 06/24/2024 15:44:58 06/25/19 25 06/24/2024 urina lysis , dipst ick Blood trace Not Available [place] [address], [place], [address], 06/24/2024 15:44:58 06/25/19 25 06/24/2024 urina lysis , dipst ick Specific [place] 1.010 Not Available [facility] [address], [place], [address], 06/24/2024 15:44:58 06/25/19 25 06/24/2024 urina lysis , dipst ick Ketone + Not Available [place] [address], [place], [address], 06/24/2024 15:44:58 06/25/19 25 06/24/2024 urina lysis , dipst ick Appearance cloudy Not Available [facility] [address], [place], [address], 06/24/2024 15:44:58 06/25/19 25 06/24/2024 urina lysis , dipst ick Color yellow Not Available [place] [address], [place], [address], 06/24/2024 15:44:58 07/03/19 25 07/02/2024 HEMAT OCRIT (HCT) HCT 31.7 % (based on docume nted legal sex) 34.0-4 5.0 low Not Available [facility] (Lab) [address] [facility], [place], [address], 07/03/2024 04:24:43 07/03/19 25 07/02/2024 HEMOG LOBIN (HGB) HGB 9.6 g/dL (based on docume nted legal sex) 11.6-1 5.4 low Not Available [facility] (Lab) [address] [facility], [place], [address], 07/03/2024 04:24:43 07/26/19 25 07/25/2024 CULTU RE: GROUP B STREP SCREE N, REFLE X SUSCE PTIBI LITY result report SEE RESULT S BELOW Test: Cultu re: Group B Strep , Refle x Susce ptibi lity ([facility] ) Speci men Sourc e: Vagin a/Rec marlene Speci men Type: Vagin al/Re ctal Speci men Date: 025 1417 Resul t Date: 025 1408 Resul t Statu s: Final resul t Abnor mal: No Resul ting Lab: [facility] [address] [facility] [address] Tel: CULTU RE ----- ----- ----- --- No Group B strep isola rachael at 2 days (martín ctive broth enhan cemen t) Not Available [facility] (Lab) [address] [facility], [place], [address], 07/28/2024 15:12:30 07/12/19 25 07/11/2024 US, kisha le w-up No observ ation record ed. [email or web address] [place] [address], [place], [address], 07/11/2024 13:57:31 07/12/19 25 07/11/2024 US, obste tric, follo w-up No observ ation record ed. [facility] [address], [place], [address], 08/06/2024 13:24:44 Result Notes None recorded. Problems Name Problem SNOMED Code Status Onset Date Resolution Date Notes Provider Name and Address Organization Details Recorded Time 70508537 Active 2023 Kaylee Santos [facility], [facility] 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 4 12:03:02 Anemia 037106745 Active Iron infusion order faxed 06/04 resent 2 3 out of 4 infusions Corazon Mack [facility], [facility] 5 09:37:01 Anemia 483645968 Active Iron infusion order faxed 06/04 resent 213 3 out of 4 infusions Corazon Mack [facility], [facility] 5 09:37:01 Problem Notes None recorded. Procedures Surgical History Date Name Laterality Status Provider Name and Address Organization Details Recorded Time 10/02/2019 Date of Last Pap Smear completed Kaylee Santos [facility] 02/08/2024 14:57:40 Imaging Results Imaging Date Name Status LastModified by Organiz ation Details LastModified Time 07/11/2024 US, obstetric, follow-up completed [email or web address] [place] [address], [place], [address], 07/11/2024 13:57:31 07/11/2024 US, obstetric, follow-up completed [email or web address] [facility] [address], [place], [address], 08/06/2024 13:24:44 Procedure Notes None recorded. Medical Equipment None Reported. Allergies No known drug allergies Medications Name Sig Start Date Stop Date Status Note LastModified by Organization Details LastModified Time active Not Available Not Avai lable Not Available Vitals Date Recorded Body height Body mass index (BMI) Body weight Systolic blood pressure Diastolic blood pressure Provider Name and Address Organization Details Last Updated DateTime 07/10/2024 165.1 cm 31.5 kg/m2 93281.96 g 104 mm[Hg] 68 mm[Hg] [facility] 14:48:30 Date Recorded Body height Body mass index (BMI) Body weight Systolic blood pressure Diastolic blood pressure Provider Name and Address Organization Details Last Updated DateTime 07/25/2024 165.1 cm 32 kg/m2 18806.74 g 123 mm[Hg] 75 mm[Hg] Kaylee [facility] 14:26:14 Date Recorded Body weight Systolic blood pressure Diastolic blood pressure Provider Name and Address Organization Details Last Updated DateTime 08/02/2024 91328.1426 7 g 119 mm[Hg] 79 mm[Hg] [facility] 08/02/2024 14:10:56 Date Recorded Body height Body mass index (BMI) Body weight Systolic blood pressure Diastolic blood pressure Provider Name and Address Organization Details Last Updated DateTime 08/09/2024 165.1 cm 32.6 kg/m2 98997.82 g 122 mm[Hg] 74 mm[Hg] SUNI Hernandez [facility] 13:03:54 Social History Question Answer Notes LastModified by Organizat ion Details LastModified Time What Is Your Level Of Alcohol Consumption? Occasional Information not available 02/08/2024 How Many Years Have You Consumed Alcohol? 10 Information not available 02/08/2024 Are You Blind Or Do You Have Difficulty Seeing? No Information n ot available 02/08/2024 What Is Your Level Of Caffeine Consumption? Heavy Information not available 02/08/2024 How Much Tobacco Do You Chew? None Information not available 02/08/2024 In The 14 Days Before Symptom Onset, Have You Had Close Contact With A Laboratory-confirm ed COVID-19 While That Case Was Ill? No Information n ot available 02/08/2024 In The 14 Days Before Symptom Onset, Have You Had Close Contact With A Person Who Is Under Investigation For COVID-19 While That Person Was Ill? No Information not available 02/08/2024 Have You Been To An Area Known To Be High Risk For COVID-19? No Information not available 02/08/2024 Are You Deaf Or Do You Have Serious Difficulty Hearing? No Information not available 02/08/2024 What Type Of Diet Are You Following? REGULAR Information n ot available 02/08/2024 What Is The Highest Grade Or Level Of School You Have Completed Or The Highest Degree You Have Received? [id number] Information not available 02/08/2024 What Is Your Occupation? Homemaker Information not available 02/08/2024 Are There Any Guns Present In Your Home? No Information not available 02/08/2024 Do You Use Protection During Sex? No Information not available 02/08/2024 Do You Use Your Seat Belt Or Car Seat Routinely? Yes Information not available 02/08/2024 Do You Have Smoke And Carbon Monoxide Detectors In Your Home? Yes Information not available 02/08/2024 How Much Tobacco Do You Smoke? No Information not available 02/08/2024 Do You Feel Stressed (tense, Restless, Nervous, Or Anxious, Or Unable To Sleep At Night)? [id number] Information not available 02/08/2024 Do You Use Any Illicit Or Recreational Drugs? No Information not available 02/08/2024 Do You Use Sunscreen Routinely? Yes Information not available 02/08/2024 Have You Used IV Drugs? No Information not available 02/08/2024 Sex: Unknown Functional Status Question Answer Note LastModified by Organizat ion Details LastModified Time Are you able to walk? YESWOREST Information not available 02/08/2024 What is your exercise level? Occasional Information not available 02/08/2024 Mental Status None recorded. Family History Relationship Description Onset Age of this Age Resolved Age Notes LastModified by Organization Details LastModified Time Unspecified Relation Family history unknown Not available 2024 13:28:23 Mother Malignant tumor of cervix Not available 2023 15:01:56 Medical History Condition Response No Past Medical History Y Gynecological History Statement/Question Response Date of LMP 10/31/2023 On BCP's at Conception? N N Was last menstrual period normal Y STIs/STDs N HPV Vaccine Y Duration of Flow (days) 7 Current Control Method Age at First Child 23 Frequency of Cycle (Q days) 42 Sexually Active? Y None Menses Monthly N Date of DEXA bone scan 01/25/2024 Age of first menstrual cycle 13 Date of Last Pap Smear 10/02/2019 Sexual Problems? N Desired Control Method None LMP Definite N Obstetrics History GPAL:G 3 P 2 0 0 2 Type Value Full Term 2 Living 2 Total 3 Past Encounters Encounter ID Performer Location Encounter Start Date Encounter Closed Date Diagnosis/Indication Diagnosis SNOMED-CT Code Diagnosis ICD10 Code Diagnosis Note [id number] Sharath Landaverde MD [place] [address] [address] 02/08/2024 13:55:43 02/08/2024 15:33:25 Routine care 907883854 Z34.90 [id number] [facility] [address],[place] [address] 02/08/2024 13:56:25 02/08/2024 14:53:09 screening 409563328 Z36.82 Z3A.11 [id number] Sharath Landaverde MD [place] [address],[place] [address] 03/07/2024 14:35:07 03/07/2024 15:47:36 Routine care 476755639 Z34.90 [id number] Sharath Landaverde MD [place] [address],[place] [address] 04/04/2024 13:57:24 04/04/2024 15:17:44 Routine care 270381830 Z34.90 [id number] Irene Beal [place] [address],[place] [address] 04/04/2024 14:17:32 04/04/2024 15:27:09 screening for malformation 730515831 Z36.3 Z3A.19 [id number] Sharath Landaverde MD [place] [address],[place] [address] 05/03/2024 14:57:53 05/03/2024 16:36:55 Routine care 954710852 Z34.90 [id number] Sharath Landaverde MD [place] [address],[place] [address] 05/31/2024 10:14:07 05/31/2024 10:39:13 Routine care 675791495 Z34.90 [id number] Sharath Landaverde MD [place] [address],[place] [address] 06/10/2024 14:16:20 06/10/2024 15:30:54 Routine care 070977822 Z34.90 [id number] Sharath Landaverde MD [place] [address],[place] [address] 06/24/2024 15:18:09 06/25/2024 08:16:15 Pain in pelvis 35501759 R10.2 Urinary tr act infectious disease 61305379 N39.0 Routine an tenatal care 697237258 Z34.90 [id number] Sharath Landaverde MD [place] [address],[place] [address] 07/10/2024 14:40:30 07/10/2024 15:05:15 Routine care 981110514 Z34.90 [id number] Bre Jimenes [place] [address],[place] [address] 07/11/2024 12:31:53 07/11/2024 13:15:11 Uterine size for dates discrepancy 706161983 O26.843 Z3A.33 [id number] Sharath Landaverde MD [place] [address] [address] 07/25/2024 14:09:18 07/25/2024 15:08:11 Routine care 400400245 Z34.90 [id number] Naomi Jose RamonLuigi Humphrey [facility] [address],[place] [address] 08/02/2024 13:27:29 08/02/2024 15:01:06 Gestation period, 36 weeks 39996759 Z3A.36 [id number] Sharath Landaverde MD [place] [address],[place] [address] 08/09/2024 12:55:56 08/09/2024 13:19:09 care status 545737086 Z34.83 Health Concerns Section Related Observation LastModified by Organization Detai ls LastModified Time None Recorded Concern Status LastModified by Organization Details LastModified Time None Recorded Advance Directives Directive None Recorded Payers Encounter Date Sequence Insurance Name Policy Number Policy Aguilar Covered Member ID Aguilar Member ID Guarantor Name 07/10/2024 1 [place] [id number] Gilson Ghosh Jr [id number] BY Gilson Ghosh 07/11/2024 1 [place] [id number] Gilson Ghosh Jr [id number] BY Gilson Ghosh 07/25/2024 1 [place] [id number] Gilson Ghosh Jr [id number] BY Gilson Ghosh 08/02/2024 1 [place] [id number] Gilson Ghosh Jr [id number] BY Gilson Ghosh 08/02/2024 2 [place] [id number] Gilson Ghosh [id number] BY Gilson Ghosh 08/09/2024 1 [place] [id number] Gilson Ghosh Jr [id number] BY Gilson Ghosh OBGyn Episode Ob Episode Information Episode Created Date Number of Fetuses Patient Bloodtype Patient rh Status Prepregnancy Weight lbs Domestic Partner Domestic Partner Phone Father Name Condenser Winder Status 02/08/20 24 1 CLOSED Fetus Data First Name Last Name Admitted to NICU Weight (g) Sex Living Outcome Pediatric Complications Fetus ID Race Codes Race Delivery Type F Full Term [id number] Vaginal Delivery Arnold Calculation Initial Arnold Date Initial Exam Date Initial Exam Provider Initial Ultrasound Date Last Menstrual Period Date Ultra Sound Weeks Gestation 0 Eighteen To Twenty Week Arnold Update Ultra Sound Date Fundal Height At Umbil Quickening Date Ultra Sound Latest Weeks Gestation Final Arnold Confirmed By Final Arnold Confirmed Date Final Arnold Date Ultra Sound Latest Days Gestation 0 0 Menstrual History Last Menstrual Date Menses Monthly On Bcp Conception Prior Menses Frequency Hcg Plus Date Menarche Onset Age Delivery Information Delivery Date Delivery Type Labor Anesthesia Weeks Gestation Incision Type Labor Labor Length Hrs Delivered By Post Complications Tubal Sterilization Discharge Date Comments 4 Discharge Information Feeding Method Contraceptive Method Maternal HG B and HCT Levels Ob Episode Information Episode Created Date Number of Fetuses Patient Bloodtype Patient rh Status Prepregnancy Weight lbs Domestic Partner Domestic Partner Phone Father Name Condenser Winder Status 02/08/20 24 1 CLOSED Fetus Data First Name Last Name Admitted to NICU Weight (g) Sex Living Outcome Pediatric Complications Fetus ID Race Codes Race Delivery Type F Full Term [id number] Vaginal Delivery Arnold Calculation Initial Arnold Date Initial Exam Date Initial Exam Provider Initial Ultrasound Date Last Menstrual Period Date Ultra Sound Weeks Gestation 0 Eighteen To Twenty Week Arnold Update Ultra Sound Date Fundal Height At Umbil Quickening Date Ultra Sound Latest Weeks Gestation Final Arnold Confirmed By Final Arnold Confirmed Date Final Arnold Date Ultra Sound Latest Days Gestation 0 0 Menstrual History Last Menstrual Date Menses Monthly On Bcp Conception Prior Menses Frequency Hcg Plus Date Menarche Onset Age Delivery Information Delivery Date Delivery Type Labor Anesthesia Weeks Gestation Incision Type Labor Labor Length Hrs Delivered By Post Complications Tubal Sterilization Discharge Date Comments 0 Discharge Information Feeding Method Contraceptive Method Maternal HG B and HCT Levels Ob Episode Information Episode Created Date Number of Fetuses Patient Bloodtype Patient rh Status Prepregnancy Weight lbs Domestic Partner Domestic Partner Phone Father Name Condenser Winder Status 02/08/20 24 1 A Positive OPEN Fetus Data First Name Last Name Admitted to NICU Weight (g) Sex Living Outcome Pediatric Complications Fetus ID Race Codes Race Delivery Type [id number] Problems Problem Notes Problem Name Start Date End Date Resolution Snomed Code Not e Rubella non-immune 983885029 M MR PP Anemia 179513158 Iron infus ion order faxed 06/04 resent 06/06 3 out of 4 infusions Spinal muscular atrophy 0311984 maternal gilbert r + - low risk Arnold Calculation Initial Arnold Date Initial Exam Date Initial Exam Provider Initial Ultrasound Date Last Menstrual Period Date Ultra Sound Weeks Gestation 02/08/2024 02/08/2024 10/31/2023 11 Eighteen To Twenty Week Arnold Update Ultra Sound Date Fundal Height At Umbil Quickening Date Ultra Sound Latest Weeks Gestation Final Arnold Confirmed By Final Arnold Confirmed Date Final Arnold Date Ultra Sound Latest Days Gestation 0 [email or web address] 02/08/2024 08/25/19 25 0 Pre- Flowsheet Flowsheet Date 02/08/2024 Alicea Score Blood Edema Fundus Height Fundus Units Glucose Ketones Leukocytes Nitrite Labor Signs Protein Cervic Dilation Cervic Effacement Cervic Station Type Weight in lbs Pre/Post Dialysis Refused Weight 162.663072105373 BP Diastolic BP Location Tested BP Systolic BP Type 74 L arm 113 sitting Fetus Heart Rate Present A 144 Fetus Movement Comments this patient is a 33-year-ol d multiparous female at 12 weeks' gestation who presents for initial care. She has a history of term vaginal births. Her medical, surgical, obstetric history is unremarkable. She is vaccinated. She was given precautions recommendations for . We talked about vaccines in . Talked about care in detail. She is having genetic testing. She had a normal 12 week ultrasound. To begin routine care. Flowsheet Date 03/07/2024 [place]a Score Blood Edema Fundus Height Fundus Units Glucose Ketones Leukocytes Nitrite Labor Signs Protein Cervic Dilation Cervic Effacement Cervic Station Type Weight in lbs Pre/Post Dialysis Refused 162.610588889018 BP Diastolic BP Location Tested BP Systolic BP Type 78 L arm 119 sitting Fetus Heart Rate Present A 145 Fetus Movement A No Comments no complaints, no problems, routine care, no contractions, no vaginal bleeding, no loss of fluid, no cramping Flowsheet Date 04/04/2024 [place]a Score Blood Edema Fundus Height Fundus Units Glucose Ketones Leukocytes Nitrite Labor Signs Protein Cervic Dilation Cervic Effacement Cervic Station Type Weight in lbs Pre/Post Dialysis Refused BP Diastolic BP Location Tested BP Systolic BP Type Fetus Heart Rate Present Fetus Movement Comments Flowsheet Date 04/04/2024 [place]a Score Blood Edema Fundus Height Fundus Units Glucose Ketones Leukocytes Nitrite Labor Signs Protein Cervic Dilation Cervic Effacement Cervic Station Type Weight in lbs Pre/Post Dialysis Refused 167.584352746951 BP Diastolic BP Location Tested BP Systolic BP Type 74 L arm 116 sitting Fetus Heart Rate Present A 145 Fetus Movement A Yes Comments no complaints, no problems, routine care, no contractions, no vaginal bleeding, no loss of fluid, no cramping Normal anatomy ultrasound Flowsheet Date 05/03/2024 [place]a Score Blood Edema Fundus Height Fundus Units Glucose Ketones Leukocytes Nitrite Labor Signs Protein Cervic Dilation Cervic Effacement Cervic Station Type Weight in lbs Pre/Post Dialysis Refused 173.463613863418 BP Diastolic BP Location Tested BP Systolic BP Type 68 L arm 107 sitting Fetus Heart Rate Present A 144 Fetus Movement A Yes Comments no complaints, no problems, routine care, no contractions, no vaginal bleeding, no loss of fluid, no cramping Flowsheet Date 05/31/2024 [place]a Score Blood Edema Fundus Height Fundus Units Glucose Ketones Leukocytes Nitrite Labor Signs Protein Cervic Dilation Cervic Effacement Cervic Station 27 cm Type Weight in lbs Pre/Post Dialysis Refused 181.732485524759 BP Diastolic BP Location Tested BP Systolic BP Type 76 L arm 115 sitting Fetus Heart Rate Present A 144 Present Fetus Movement A Yes Comments no complaints, no problems, routine care, no contractions, no vaginal bleeding, no loss of fluid, no cramping Flowsheet Date 06/10/2024 [place]a Score Blood Edema Fundus Height Fundus Units Glucose Ketones Leukocytes Nitrite Labor Signs Protein Cervic Dilation Cervic Effacement Cervic Station 29 cm Type Weight in lbs Pre/Post Dialysis Refused 182.648712202255 BP Diastolic BP Location Tested BP Systolic BP Type 73 L arm 115 sitting Fetus Heart Rate Present A 154 Present Fetus Movement A Yes Comments no complaints, no problems, routine care, no contractions, no vaginal bleeding, no loss of fluid, no cramping Flowsheet Date 06/24/2024 [place]a Score Blood Edema Fundus Height Fundus Units Glucose Ketones Leukocytes Nitrite Labor Signs Protein Cervic Dilation Cervic Effacement Cervic Station 31 cm Type Weight in lbs Pre/Post Dialysis Refused Weight 186.475563563291 BP Diastolic BP Location Tested BP Systolic BP Type 75 L arm 121 sitting Fetus Heart Rate Present A 148 Present Fetus Movement A Yes Comments complains of swelling. Leann r in the morning, worsening as the day goes on, no headaches, no blurry vision, no epigastric pain, normal blood pressures. Urinary tract infection, treated today Flowsheet Date 07/10/2024 [place]a Score Blood Edema Fundus Height Fundus Units Glucose Ketones Leukocytes Nitrite Labor Signs Protein Cervic Dilation Cervic Effacement Cervic Station 30 cm Type Weight in lbs Pre/Post Dialysis Refused Weight 189.011326516616 BP Diastolic BP Location Tested BP Systolic BP Type 68 L arm 104 sitting Fetus Heart Rate Present A 142 Present Fetus Movement A Yes Comments no complaints, no problems, routine care, no contractions, no vaginal bleeding, no loss of fluid, no cramping measuring small, to get growth ultrasounds Flowsheet Date 07/11/2024 [place]a Score Blood Edema Fundus Height Fundus Units Glucose Ketones Leukocytes Nitrite Labor Signs Protein Cervic Dilation Cervic Effacement Cervic Station Type Weight in lbs Pre/Post Dialysis Refused BP Diastolic BP Location Tested BP Systolic BP Type Fetus Heart Rate Present Fetus Movement Comments Flowsheet Date 07/25/2024 [place]a Score Blood Edema Fundus Height Fundus Units Glucose Ketones Leukocytes Nitrite Labor Signs Protein Cervic Dilation Cervic Effacement Cervic Station Type Weight in lbs Pre/Post Dialysis Refused Weight 192.795256803067 BP Diastolic BP Location Tested BP Systolic BP Type 75 L arm 123 sitting Fetus Heart Rate Present A 152 Present Fetus Movement Comments no complaints, no problems, routine care, no contractions, no vaginal bleeding, no loss of fluid, no cramping Flowsheet Date 08/02/2024 Alicea Score Blood Edema Fundus Height Fundus Units Glucose Ketones Leukocytes Nitrite Labor Signs Protein Cervic Dilation Cervic Effacement Cervic Station 1cm Type Weight in lbs Pre/Post Dialysis Refused 191.387652063316 BP Diastolic BP Location Tested BP Systolic BP Type 79 L arm 119 sitting Fetus Heart Rate Present A 138 Present Fetus Movement A Yes Comments ok for pepcid, increase in s welling, precautions reviewed +FM, f/u one week, wants to wait for natural labor Flowsheet Date 08/09/2024 Alicea Score Blood Edema Fundus Height Fundus Units Glucose Ketones Leukocytes Nitrite Labor Signs Protein Cervic Dilation Cervic Effacement Cervic Station neg trace Type Weight in lbs Pre/Post Dialysis Refused Weight 196.67802532355 BP Diastolic BP Location Tested BP Systolic BP Type 74 L arm 122 sitting Fetus Heart Rate Present A 156 Fetus Movement A Yes Comments pt has concerns about a lot of discharge yellow-greenish color. also has swelling in legs and feet. has good fm , routine care, no contractions, no vaginal bleeding, no loss of fluid, no cramping Menstrual History Last Menstrual Date Menses Monthly On Bcp Conception Prior Menses Frequency Hcg Plus Date Menarche Onset Age 0710/31/2023 true 42 Delivery Information Delivery Date Delivery Type Labor Anesthesia Weeks Gestation Incision Type Labor Labor Length Hrs Delivered By Post Complications Tubal Sterilization Discharge Date Comments Discharge Information Feeding Method Contraceptive Method Maternal HG B and HCT Levels
[2024-08-11 22:27] VITALS: BP 131/81; PULSE 92
[2024-08-11 22:30] VITALS: BP 125/79; PULSE 91
[2024-08-11 22:45] VITALS: BP 117/75; PULSE 90
[2024-08-11 23:00] VITALS: BP 121/73; PULSE 93
[2024-08-11 23:15] VITALS: BP 115/69; PULSE 92
[2024-08-11 23:30] VITALS: BP 123/79; PULSE 87
[2024-08-12 00:02] LABS: Add Urine Microscopic? YES; Appearance Urine Clear (Clear); Bacteria Urine None Seen /hpf; Bilirubin Urine Negative (Negative); Blood Urine Negative (Negative); Color Urine Yellow (Yellow); Glucose Urine UA Negative (Negative); Ketones Urine Negative (Negative); Leukocyte Esterase Ur Trace LEU/UL (Negative); Nitrate Urine Negative (Negative); Non Pathogenic Casts 0-2; Protein Urine Negative (Negative); RBC Urine 0-2 /hpf (0-2); Specific Grav Ur 1.011 (1.001-1.035); Squamous Epithelial Cell Urine Few /hpf (Few); Urobilinogen Urine 0.2 mg/dL (<2.0); WBC Urine 0-5 /hpf (0-3)
[2024-08-12 01:06] LABS: Total Protein Urine Random 13 mg/dL
[2024-08-12 01:09] LABS: Creatinine Urine 58.3 mg/dL; Ur Ttl Prot Creatinine Ratio 0.22 mg/mg (0-0.20)
== END 2024-08-11 23:39 | disposition home or self-care (01) ==
LOC: ANHOBOP 22:05 → ANHOBPP 22:13
PROVIDERS: Visit Provider Obstetrics & Gynecology
DX: O12.00 Gestational edema, unspecified trimester (principal); Z3A.00 Weeks of gestation of pregnancy not specified
CPT/HCPCS: 81001; 82570; 84156; 99199

== ENCOUNTER 2024-08-23 04:53 | Inpatient (IN) | payer BC, SELFPAY ==
[2024-08-23] VITALS (61 sets, daily range): BP systolic 107–152; BP diastolic 31–90; PULSE 78–132; RESP 16–18; TEMP 36.6–37.2; O2SAT 96–99; BMI 32.0
--- OUTSIDE RECORDS SUMMARY | 2024-08-23 04:58 | XMS_ITS | Data Portability ---
Author Organization [facility] Address [address] [place] [address] Assessment Encounter Date Assessment Date Assessment LastModified by Organization Details LastModified Time 07/25/2024 07/25/2024 Patient is ___weeks . Discussed plan. Not available 07/25/2024 14:25:14 08/02/2024 08/02/2024 Patient is _36__weeks . Discussed plan. [email or web address] Not available 08/02/2024 14:18:41 08/09/2024 08/09/2024 Patient is ___weeks . Discussed plan. [email or web address] Not available 08/09/2024 13:03:07 08/14/2024 08/14/2024 Patient is _38__weeks . Discussed plan. [email or web address] Not available 08/15/2024 09:42:08 08/21/2024 08/21/2024 Patient is _39__weeks . Discussed plan. [email or web address] Not available 08/21/2024 16:43:47 Plan of Treatment Reminders Order Date Submit Date Provider Last Modified By Organization Details Last Modified Time Details Appointments INDUCTION 2024 05:00A M Naomi Humphrey CNM Not available Not available Not available Lab None recorded. Referral None recorded. Procedures None recorded. Surgeries None recorded. Imaging None recorded. Medication Orders None recorded. Patient TargetsNo targets recorded. Patient InstructionsNo instructions [...] Resul t Statu s: Final resul t Manuelor mal: Yes Wei [place] Lab: [facility] [address] [facility] [address] Tel: CULTU RE ----- ----- ----- --- [...] 1 ug/mL Susce ptibl e Not Available [facility] (Lab) [address], [place], [address], 06/27/2024 12:40:31 06/25/19 25 06/24/2024 urina lysis , dipst ick Leukocytes trace Not Available [facility] [address], [place], [address], 06/24/2024 15:44:58 06/25/19 25 06/24/2024 urina lysis , dipst ick Protein + Not Available [facility] [address], [place], [address], 06/24/2024 15:44:58 06/25/19 25 06/24/2024 urina lysis , dipst ick pH 7 Not Available [facility] [address], [place], [address], 06/24/2024 15:44:58 06/25/19 25 06/24/2024 urina lysis , dipst ick Blood trace Not Available [facility] [address], [place], [address], 06/24/2024 15:44:58 06/25/19 25 06/24/2024 urina lysis , dipst ick Specific [place] 1.010 Not Available [facility] [address], [place], [address], 06/24/2024 15:44:58 06/25/19 25 06/24/2024 urina lysis , dipst ick Ketone + Not Available [facility] [address], [place], [address], 06/24/2024 15:44:58 06/25/19 25 06/24/2024 urina lysis , dipst ick Appearance cloudy Not Available [facility] [address], [place], [address], 06/24/2024 15:44:58 06/25/19 25 06/24/2024 urina lysis , dipst ick Color yellow Not Available [facility] [address], [place], [address], 06/24/2024 15:44:58 07/03/19 25 07/02/2024 HEMAT OCRIT (HCT) HCT 31.7 % (based on docume nted legal sex) 34.0-4 5.0 low Not Available [facility] (Lab) [address], [place], [address], 07/03/2024 04:24:43 07/03/19 25 07/02/2024 HEMOG LOBIN (HGB) HGB 9.6 g/dL (based on docume nted legal sex) 11.6-1 5.4 low Not Available [facility] (Lab) [address], [place], [address], 07/03/2024 04:24:43 07/26/19 25 07/25/2024 CULTU RE: GROUP B STREP SCREE N, REFLE X SUSCE PTIBI LITY result report SEE RESULT S BELOW Test: Cultu re: Group B Strep , Refle x Susce ptibi lity ([facility] ) Speci men Sourc e: Vagin a/Rec marlene Speci men Type: Vagin al/Re ctal Speci men Date: 025 1417 Resul t Date: 025 1408 Resul t Statu s: Final resul t Abnor mal: No Resul ting Lab: [facility] [address] [facility] [address] Tel: CULTU RE ----- ----- ----- --- No Group B strep isola rachael at 2 days (martín ctive broth enhan cemen t) Not Available [facility] (Lab) [address] [facility] [address], [place], [address], 07/28/2024 15:12:30 07/12/19 25 07/11/2024 US, lucae tric, follo w-up No observ ation record ed. [email or web address] [facility] [address], [place], [address], 07/11/2024 13:57:31 07/12/19 25 07/11/2024 US, obste tric, follo w-up No observ ation record ed. [email or web address] [address], [place], [address], 08/06/2024 13:24:44 08/22/19 25 08/21/2024 alani ng/nguyen rodriguez tic resul t No observ ation record ed. [address], [place], [address], 08/21/2024 22:05:25 Result Notes None recorded. Problems Name Problem SNOMED Code Status Onset Date Resolution Date Notes Provider Name and Address Organization Details Recorded Time 28718146 Active 2023 Kaylee Santos [facility], [facility] 4 15:04:53 Rubella non-immune 356706697 Active MMR PP Corazonsanam Mack [facility], [facility] 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 4 12:03:02 Anemia 698054511 Active Iron infusion order faxed 06/04 resent 2/13 3 out of 4 infusions Corazon Mack [facility], [facility] 5 09:37:01 Anemia [id number] Active Iron infusion order faxed 06/04 resent 2/13 3 out of 4 infusions Corazon Mack [facility] 5 09:37:01 Problem Notes None recorded. Procedures Surgical History Date Name Laterality Status Provider Name and Address Organization Details Recorded Time 0 Date of Last Pap Smear completed Kaylee Santos [facility] 02/08/2024 14:57:40 5 extraction of wisdom tooth completed Kiki Hsieh [facility] 08/14/2024 14:48:06 Imaging Results Imaging Date Name Status LastModified by Organiz ation Details LastModified Time 07/11/2024 US, obstetric, [email or web address] [address], [place], [address], 07/11/2024 13:57:31 07/11/2024 US, obstetric, follow-up completed [address], [place], [address], 08/06/2024 13:24:44 08/21/2024 imaging/diag nostic result active [address], [place], [address], 08/21/2024 22:05:25 Procedure Notes None recorded. Medical Equipment None [...] Updated DateTime 07/25/2024 165.1 cm 32 kg/m2 03916.74 g 123 mm[Hg] 75 mm[Hg] [facility] 14:26:14 Date Recorded Body weight Systolic blood pressure Diastolic blood pressure Provider Name and Address Organization Details Last Updated DateTime 08/02/2024 15235.1426 7 g 119 mm[Hg] 79 mm[Hg] [facility] 08/02/2024 14:10:56 Date Recorded Body height Body mass index (BMI) Body weight Systolic blood pressure Diastolic blood pressure Provider Name and Address Organization Details Last Updated DateTime 08/09/2024 165.1 cm 32.6 kg/m2 62453.82 g 122 mm[Hg] 74 mm[Hg] SUNI Hernandez [facility] 13:03:54 Date Recorded Body height Body mass index (BMI) Body weight Systolic blood pressure Diastolic blood pressure Provider Name and Address Organization Details Last Updated DateTime 08/14/2024 165.1 cm 32.8 kg/m2 82738.7 g 138 mm[Hg] 79 mm[Hg] Kiki Hsieh [facility] 5 14:45:02 Date Recorded Body height Body mass index (BMI) Body weight Systolic blood pressure Diastolic blood pressure Provider Name and Address Organization Details Last Updated DateTime 08/21/2024 165.1 cm 33.4 kg/m2 98904.07 g 123 mm[Hg] 85 mm[Hg] Kiki Hsieh [facility] 15:34:39 Social History Question Answer Notes LastModified by Organizat ion Details LastModified Time Tobacco Smoking Status Never Smoker Kiki Hsieh [facility], [facility] 08/14/2024 14:47:43 What Is Your Level Of Alcohol Consumption? None Information not available 08/21/2024 If You Are , What Was Your Level Of Alcohol Consumption Prior To ? Occasional Information not available 08/14/2024 How Many Years Have You Consumed Alcohol? [...] Or The Highest Degree You Have Received? [id number] Information not available 02/08/2024 What Is Your [...] Anxious, Or Unable To Sleep At Night)? [id number] Information not available 02/08/2024 Do You Use Any Illicit Or Recreational Drugs? No Information not available 02/08/2024 Do You Use Sunscreen Routinely? Yes Information not available 02/08/2024 Has Tobacco Cessation Counseling Been Provided? No [email or web address] Information not available 08/14/2024 Have You Used IV Drugs? No Information not available 02/08/2024 Do You Or Have You Ever Used Any Other Forms Of Tobacco Or Nicotine? No [email or web address] Information not available 08/14/2024 Sex: Unknown Functional Status Question Answer Note LastModified by Organizat ion Details LastModified Time Do you have difficulty walking or climbing stairs? No [email or web address] Information not available 08/14/2024 Are you able to walk? YESWOREST Information not available 02/08/2024 Are you able to care for yourself? Yes [email or web address] Information not available 08/14/2024 Do you have difficulty dressing or bathing? No Information not available 08/14/2024 What is your exercise level? Occasional Information not available 02/08/2024 Mental Status None recorded. Family History Relationship Description Onset Age of this Age Resolved Age Notes LastModified by Organization Details LastModified Time Unspecified Relation Family history unknown [email or web address] Not available 2024 13:28:23 Mother Malignant tumor of cervix Not available 2023 15:01:56 Medical History Condition Response Allergies (Food, seasonal, environmental ) N Other N Breast Cancer N Drug/Latex Allergies/Reactions N Blood Transfusion N Dermatologic Disorders N Lung Disease N Defects or Inherited Disease N Breast Problem N Gestational Diabetes N Hematologic disorders N Anesthesia Complications N History of STI N Deep Vein Thrombosis N Polycystic ovary syndrome N Anxiety Disorder N Autoimmune disease N Arthritis N Infertility N Polyps N Acid Reflux (GERD) N History of abnormal pap N Cancer N Stroke N Varicosities N Neurologic/Epilepsy N Endometriosis N High Cholesterol N Headaches N Fibromyalgia N Kidney Disease N Heart Problems N Kidney or Bladder Problems N Thyroid Problems N GI Problems N Eating Disorder N Anemia N Art (IVF or FET) N Psychiatric Illness N Ovarian Cancer N Diabetes N Pulmonary (TB, Asthma) N Hepatitis/Liver Disease N No Past Medical History N Eczema N Urinary Tract Infection N Abuse/Domestic Violence N Asthma N Trauma/Violence N Depression/ depression N Heart Disease N Pre-Eclampsia N Hypertension N Osteoporosis N Thrombophilias N Gynecological History Statement/Question Response Date of Last Mammogram Date of LMP 10/31/2023 N Was last menstrual period normal Y STIs/STDs N Date of Last Colonoscopy None Desired Control Method None Abnormal Pap N On BCP's at Conception? N HPV Vaccine Y Duration of Flow (days) 7 Current Control Method Age at First Child 23 Frequency of Cycle (Q days) 42 Sexually Active? Y Menses Monthly N Date of DEXA bone scan Age of first menstrual cycle 13 Date of Last Pap Smear 10/02/2019 Sexual Problems? N LMP Definite N Obstetrics History GPAL:G 3 P 2 0 0 2 Type Value Full Term 2 Living 2 Total 3 Past Encounters Encounter ID Performer Location Encounter Start Date Encounter Closed Date Diagnosis/Indication Diagnosis SNOMED-CT Code Diagnosis ICD10 Code Diagnosis Note [id number] Sharath Landaverde MD [facility] [address] [address] 02/08/2024 13:55:43 02/08/2024 15:33:25 Routine care 483603801 Z34.90 [id number] Sharath Landaverde MD [facility] [address] [address] 02/08/2024 13:56:25 02/08/2024 14:53:09 screening 838738897 Z36.82 Z3A.11 [id number] MD Mireille Boland [address],[place] [address] 03/07/2024 14:35:07 03/07/2024 15:47:36 Routine care 349216611 Z34.90 [id number] MD Mireille Boland [address],[place] [address] 04/04/2024 13:57:24 04/04/2024 15:17:44 Routine care 571622064 Z34.90 [id number] MD Mireille Boland [address],[place] [address] 04/04/2024 14:17:32 04/04/2024 15:27:09 screening for malformation 286592176 Z36.3 Z3A.19 [id number] MD Mireille Boland [address],[place] [address] 05/03/2024 14:57:53 05/03/2024 16:36:55 Routine care 204704536 Z34.90 [id number] MD Mireille Boland [address],[place] [address] 05/31/2024 10:14:07 05/31/2024 10:39:13 Routine care 707691004 Z34.90 [id number] MD Mireille Boland [address],[place] [address] 06/10/2024 14:16:20 06/10/2024 15:30:54 Routine care 891542674 Z34.90 [id number] MD Mireille Boland [address],[place] [address] 06/24/2024 15:18:09 06/25/2024 08:16:15 Pain in pelvis 46603905 R10.2 Urinary tr act infectious disease 50000119 N39.0 Routine an tenatal care 785361490 Z34.90 [id number] MD Mireille Boland [address],[place] [address] 07/10/2024 14:40:30 07/10/2024 15:05:15 Routine care 815316215 Z34.90 [id number] MD Mireille Bol[facility] [address],[place] [address] 07/11/2024 12:31:53 07/11/2024 13:15:11 Uterine size for dates discrepancy 446308871 O26.843 Z3A.33 [id number] MD Mireille Boland [address],[place] [address] 07/25/2024 14:09:18 07/25/2024 15:08:11 Routine care 588246529 Z34.90 [id number] MD Mireille Bol[facility] [address],[place] [address] 08/02/2024 13:27:29 08/02/2024 15:01:06 Gestation period, 36 weeks 11330333 Z3A.36 [id number] Sharath Landaverde MD [facility] [address],[place] [address] 08/09/2024 12:55:56 08/09/2024 13:19:09 care status 432479489 Z34.83 [id number] Naomi Humphrey CNM [facility] [address],[place] [address] 08/14/2024 14:12:42 08/16/2024 03:56:18 Gestation period, 38 weeks 79877174 Z3A.38 [id number] Naomi Humphrey CNM [facility] [address],[place] [address] 08/21/2024 15:07:13 08/21/2024 16:47:53 Gestation period, 39 weeks 99230540 Z3A.39 Health Concerns Section Related Observation LastModified by Organization Detai ls LastModified Time None Recorded Concern Status LastModified by Organization Details LastModified Time None Recorded Advance Directives Directive None Recorded Payers Encounter Date Sequence Insurance Name Policy Number Policy Aguilar Covered Member ID Aguilar Member ID Guarantor Name 07/25/2024 1 [place] [id number] Gilson Ghosh [id number] BY Gilson Ghosh 08/02/2024 1 [place] [id number] Gilson Ghosh [id number] BY Gilson Ghosh 08/02/2024 2 [place] [id number] Gilson Ghosh [id number] BY Gilson Ghosh 08/09/2024 1 [place] [id number] Gilson Ghosh Jr [id number] BY Gilson Ghosh 08/14/2024 1 [place] [id number] Gilson Ghosh [id number] BY Gilson Ghosh 08/21/2024 1 [place] [id number] Gilson Ghosh Jr [id number] BY Gilson Ghosh OBGyn Episode Ob Episode Information Episode Created Date Number of Fetuses Patient Bloodtype Patient rh Status Prepregnancy Weight lbs Domestic Partner Domestic Partner Phone Father Name Continuous Miner Status 02/08/20 24 1 CLOSED Fetus Data First Name Last Name Admitted to NICU Weight (g) Sex Living Outcome Pediatric Complications Fetus ID Race Codes Race Delivery Type 3883.65 4704 F Full Term 14379 Vaginal Delivery Arnold Calculation Initial Arnold Date [...] Complications Tubal Sterilization Discharge Date Comments 4 40 Discharge Information Feeding Method Contraceptive Method Maternal HG B and HCT Levels Ob Episode Information Episode Created Date Number of Fetuses Patient Bloodtype Patient rh Status Prepregnancy Weight lbs Domestic Partner Domestic Partner Phone Father Name Continuous Miner Status 02/08/20 24 1 CLOSED Fetus Data First Name Last Name Admitted to NICU Weight (g) Sex Living Outcome Pediatric Complications Fetus ID Race Codes Race Delivery Type 3883.65 4704 F Full Term 00599 Vaginal Delivery Arnold Calculation Initial Arnold Date [...] Complications Tubal Sterilization Discharge Date Comments 0 41 Discharge Information Feeding Method Contraceptive Method Maternal HG B and HCT Levels Ob Episode Information Episode Created Date Number of Fetuses Patient Bloodtype Patient rh Status Prepregnancy Weight lbs Domestic Partner Domestic Partner Phone Father Name Continuous Miner Status 02/08/20 24 1 A Positive OPEN Fetus Data First Name Last Name Admitted to NICU Weight (g) Sex Living Outcome Pediatric Complications Fetus ID Race Codes Race Delivery Type [id number] Problems Problem Notes Problem Name Start Date End Date Resolution Snomed Code Not e Rubella non-immune 868578814 M MR PP Anemia 769878815 Iron infus ion order faxed 06/04 resent 06/06 3 out of 4 infusions Spinal muscular atrophy 4926315 maternal gilbert r + - low risk [...] Gestation 0 [email or web address] 02/08/2024 08/25/19 25 0 Pre-paty Flowsheet Flowsheet Date 02/08/2024 Alicea Score Blood Edema Fundus Height Fundus Units Glucose Ketones Leukocytes Nitrite Labor Signs Protein Cervic Dilation Cervic Effacement Cervic Station Type Weight in lbs Pre/Post Dialysis Refused Weight 162.246764240164 BP Diastolic BP Location Tested BP Systolic [...] Type Weight in lbs Pre/Post Dialysis Refused 162.730822816934 BP Diastolic BP Location Tested BP Systolic [...] Type Weight in lbs Pre/Post Dialysis Refused 167.292439190622 BP Diastolic BP Location Tested BP Systolic [...] Type Weight in lbs Pre/Post Dialysis Refused 173.421341636728 BP Diastolic BP Location Tested BP Systolic [...] Type Weight in lbs Pre/Post Dialysis Refused 181.675240254684 BP Diastolic BP Location Tested BP Systolic [...] Type Weight in lbs Pre/Post Dialysis Refused 182.999709100157 BP Diastolic BP Location Tested BP Systolic [...] Weight in lbs Pre/Post Dialysis Refused Weight 186.408588577280 BP Diastolic BP Location Tested BP Systolic [...] Weight in lbs Pre/Post Dialysis Refused Weight 189.716233468068 BP Diastolic BP Location Tested BP Systolic [...] Weight in lbs Pre/Post Dialysis Refused Weight 192.150156814515 BP Diastolic BP Location Tested BP Systolic [...] Type Weight in lbs Pre/Post Dialysis Refused 191.828655934265 BP Diastolic BP Location Tested BP Systolic [...] Weight in lbs Pre/Post Dialysis Refused Weight 196.83084976604 BP Diastolic BP Location Tested BP Systolic BP Type 74 L arm 122 sitting Fetus Heart Rate Present A 156 Fetus Movement A Yes Comments pt has concerns about a lot of discharge yellow-greenish color. also has swelling in legs and feet. has good fm , routine care, no contractions, no vaginal bleeding, no loss of fluid, no cramping Flowsheet Date 08/14/2024 Alicea Score Blood Edema Fundus Height Fundus Units Glucose Ketones Leukocytes Nitrite Labor Signs Protein Cervic Dilation Cervic Effacement Cervic Station neg trace Type Weight in lbs Pre/Post Dialysis Refused Weight 197.633242035759 BP Diastolic BP Location Tested BP Systolic BP Type 79 138 Fetus Heart Rate Present A 157 Present Fetus Movement A Yes Comments Patient is having some swell ing, contractions, discharge and pressure. considering IOL around due date if undelivered education and precautions f/u one week Flowsheet Date 08/21/2024 Alicea Score Blood Edema Fundus Height Fundus Units Glucose Ketones Leukocytes Nitrite Labor Signs Protein Cervic Dilation Cervic Effacement Cervic Station neg trace 1cm Type Weight in lbs Pre/Post Dialysis Refused Weight 201.581054034389 BP Diastolic BP Location Tested BP Systolic BP Type 85 123 Fetus Heart Rate Present A 152 Present Fetus Movement A Yes Comments Patient is having contractio ns, back pain, discharge, swelling, nausea, vomiting and heartburn. pt would like IOL, does not plan epidural, +FM, scheduled for 5/2 Menstrual History Last Menstrual Date Menses Monthly [...]
--- NOTE | 2024-08-23 05:26 | LDADM ---
This patient, Vero Ghosh, was admitted to Labor/Delivery/Recovery 108 on 08/23/24 at 04:53. Plans for labor, pain management and were discussed with patient. Patient/family oriented to hospital policies and general routines including ID bracelet, bed and alarms, visiting hours, pain management, procedures, bathroom and other care routines, personal items, smoking policy, room service/diet and guest tray routines, infant security routines, and visiting hours. Patient/Family are encouraged to report perceived risks to care and to ask questions if they do not understand what they are told or what they should do. See OBIX for further documentation.
[2024-08-23 05:41] LABS: Basophils Percent Auto 0.4 % (0.2-1.2); Eosinophils Absolute Auto 0.1 K/mm3 (0-0.3); Eosinophils Percent Auto 0.7 % (0-4.4); Hemoglobin 9.8 g/dL (12.0-15.0); Immature Granulocyte Absolute 0.03 K/mm3 (0.00-0.031); Immature Granulocyte Percent A 0.4 % (0-0.5); Lymphocytes Absolute Auto 2.03 K/mm3 (0.9-3.2); Lymphocytes Percent Auto 29.3 % (18.3-44.2); Mean Corpuscular HGB Conc 30.6 g/dl (32-36); Mean Corpuscular Hemoglobin 26.5 pg (26-34); Mean Corpuscular Volume 86.5 fl (80-100); Mean Platelet Volume 11.5 fl (7.4-10.4); Monocytes Absolute Auto 0.4 K/mm3 (0.1-0.6); Monocytes Percent Auto 6.4 % (2.6-8.5); Neutrophils Absolute Auto 4.3 K/mm3 (1.3-6.7); Neutrophils Percent Auto 62.8 % (45.5-73.1); Platelet Count Result 220 k/mm3 (150-375); Red Cell Distribution Width 17.6 % (11.5-14.5); White Blood Count 6.9 K/mm3 (4.5-10.0)
[2024-08-23 06:24] LABS: Syphilis IgG/IgM Antibody Negative (Negative)
[2024-08-23] MEDS: OXYTOCIN 30 UNITS/NS 500 ML 30 UNITS/500 ML BAG IV CONT (06:25)
[2024-08-23] MEDS: LACTATED RINGERS 1,000 ML 125 ML IV CONT (06:26)
[2024-08-23 06:33] LABS: HIV 1/2 Ab P24 Ag Result Negative (Negative)
--- NOTE | 2024-08-23 12:02 | WPDOBADMIT ---
Obstetrics - Admit Note Admission Note: record reviewed. No pertinent additions to the history and/or any subsequent changes in the physical findings that are not consistent with the expected course of the were found. Additions to the history and/or subsequent changes in the physical findings follow. Admit for IOL, SVE 280/-2 AROM moderate amount of clear, odorless fluid, anticipate vaginal delivery
--- NOTE | 2024-08-23 14:55 | PM.OBPRVD ---
OB - Vaginal Delivery Note Procedure Delivery date: 08/23/24 Induction method: AROM and Per Pitocin Protocol Delivery monitor: External FHT and External Uterine Route of delivery: Episiotomy description: None Laceration Description: Superficial Specimen: No Quantitative Blood Loss (ml): 100 Anesthesia type: None Disposition: Floor Narrative: EVGENY, unable to deliver anterior shoulder, alysa and suprapubic pressure did not resolve, was able to welder/fabricator the posterior arm and deliver it then was able to externally rotate the anterior shoulder and the baby then delivered without difficulty
[2024-08-23] MEDS: OXYTOCIN 30 UNITS/NS 500 ML 30 UNITS/500 ML BAG 125 UNITS IV CONT (15:16)
[2024-08-23] MEDS: BENZOCAINE 20% AER SPR (*SP) 56 GM CAN 1 SPRAY TOPICAL (15:50)
[2024-08-23] MEDS: IBUPROFEN 600 MG TABLET PO ×2 (15:50→22:14)
[2024-08-23] MEDS: WITCH HAZEL 40 PADS 1 PAD TOPICAL (15:50)
--- NOTE | 2024-08-23 16:00 | PC.NURSE ---
Labor nurse called for assistance for this patient. Patient just delivered vaginally and she has a history of her 2 daughters with a nipple shield. Shield provided and patient shown how to use and clean after each use. Mom applied the shield well and attempted to latch baby. He was a shoulder dystocia and has a bruised face. He is fussy and cries at the breast with minimal effort to suckle. Mom and dad work to calm him and he begins to suckle off and on with some intermittent crying. Discussed with mom the we recommend pumping a few times a day if using the nipple shield consistently. Mom agrees and states that she pumped initially with her daughters too. We will set her up with a pump after transfer to . Father present and supportive at bedside. Patient states she feels some gushing and her fundus was checked and firm at 1/U. She does appear to have some bleeding and the labor nurse was notified and came to the room to check her. We will continue to work with baby and the nipple shield, encouraging the patient to call for help at any feedings that she needs assistance. Patient agrees. RN updated.
[2024-08-23] MEDS: ACETAMINOPHEN 325 MG TABLET 650 MG PO (19:30)
--- NOTE | 2024-08-23 22:55 | PC.NURSE ---
Patient transferred to post room #288 via wheelchair. Support person present. Oriented to unit, room, information board, rooming in, admission packet and security measures. Patient verbalizes understanding.
[2024-08-24] MEDS: ACETAMINOPHEN 325 MG TABLET 650 MG PO ×3 (02:46→22:19)
[2024-08-24 02:55] VITALS: BP 128/79; PULSE 76; RESP 18; TEMP 36.4; O2SAT 99
[2024-08-24 05:25] LABS: Hematocrit 29.9 % (37.0-47.0); Hemoglobin 9.2 g/dL (12.0-15.0)
[2024-08-24 07:34] VITALS: BP 104/72; PULSE 77; RESP 16; TEMP 37; O2SAT 99
[2024-08-24] MEDS: IBUPROFEN 600 MG TABLET PO ×2 (07:39→17:46)
[2024-08-24] MEDS: MULTIVIT/MIN/PREN/FOL AC/IRON TABLET 1 TAB PO (07:39)
[2024-08-24] MEDS: POLYSACCHARIDE IRON COMPLEX 150 MG CAPSULE PO ×2 (07:39→16:18)
[2024-08-24] MEDS: DOCUSATE SODIUM 100 MG CAPSULE PO ×2 (07:40→16:18)
--- NOTE | 2024-08-24 10:30 | P.PNOB_ITS ---
OB - PN: Subj Subjective Date/time seen: 08/24/24 10:30 Patient comments: no complaints, pain well controlled, incisional pain, tolerating diet and flatus present OB - PN: Obj Data Labs 08/24/24 02:56 Labs: Laboratory Results - last 24 hr 08/24/24 02:56 Hgb 9.2 L Hct 29.9 L OB - PN A/P Plan day: 1 Plan: routine care Comments: No problems, routine care Time Spent With Patient Time: Total time spent is greater than 50% in coordination of care (as documented) at patient's floor/unit and/or counseling patient: Exam 2 Const: General: comfortable, no acute distress and alert Resp: Effort & Inspection: normal respiratory effort Auscultation: no crackles, no rales and no rhonchi Cardio: Rate: regular rate Heart sounds: no click, no murmurs and no rubs GI: Inspection: non-distended GI Palp: No Tenderness to palpation present (GI) Auscultation: normal bowel sounds Other: Incision - CDI Extrem: General: normal to inspection, no pedal edema and no calf tenderness
--- NOTE | 2024-08-24 10:57 | P.PNOB_ITS ---
OB - PN: Subj Subjective Date/time seen: 08/24/24 10:57 Patient comments: no complaints, pain well controlled, incisional pain, tolerating diet and flatus present OB - PN: Obj Data Labs 08/24/24 02:56 Labs: Laboratory Results - last 24 hr 08/24/24 02:56 Hgb 9.2 L Hct 29.9 L OB - PN A/P Plan day: 1 Plan: routine care Comments: No problems, routine care Time Spent With Patient Time: Total time spent is greater than 50% in coordination of care (as documented) at patient's floor/unit and/or counseling patient: Exam 2 Const: General: comfortable, no acute distress and alert Resp: Effort & Inspection: normal respiratory effort Auscultation: no crackles, no rales and no rhonchi Cardio: Rate: regular rate Heart sounds: no click, no murmurs and no rubs GI: Inspection: non-distended GI Palp: No Tenderness to palpation present (GI) Auscultation: normal bowel sounds Other: Incision - CDI Extrem: General: normal to inspection, no pedal edema and no calf tenderness
[2024-08-24] MEDS: TETANUS,DIPHTHERIA,AC PERTUSSIS ADULT (0.5 ML) BOOSTRIX IM (12:10)
[2024-08-24 12:11] VITALS: BP 115/69; PULSE 82; RESP 16; TEMP 36.6; O2SAT 99
--- NOTE | 2024-08-24 12:30 | PC.NURSE ---
1230: Mom requested breast pump due to continued use of the nipple shield. There are no [employer] pumps available until some discharges so patient is provided with a pump kit and a hand pump. A hospital pump with be provided when one is available. 1445: [employer] pump taken in to patient. She did use the hand pump and was able to get 0.5ml of colostrum. RN syringe fed baby and parents were shown how to use the syringe to place small amounts of milk in baby's cheek. They have experience with pumping due to use of the nipple shield with their other 2 children. Mom is shown how to use the initiate mode on the pump and is using the 21mm flanges. She is having some soreness and wanted to try a smaller shield size. She is advised to try to find a 21mm for purchase because we do not currently have then available here. Mom is educated to pump several times a day while using the shield. She likes the hand pump but is encouraged to call out if she needs further assistance or instruction on the electric pump or with feedings. Family present and supportive. RN updated.
[2024-08-24 20:10] VITALS: BP 109/74; PULSE 81; RESP 16; TEMP 36.6; O2SAT 99
[2024-08-25] MEDS: IBUPROFEN 600 MG TABLET PO (02:25)
[2024-08-25 07:20] VITALS: BP 101/68; PULSE 74; RESP 20; TEMP 36.9
[2024-08-25] MEDS: ACETAMINOPHEN 325 MG TABLET 650 MG PO (07:27)
[2024-08-25] MEDS: POLYSACCHARIDE IRON COMPLEX 150 MG CAPSULE PO (09:42)
[2024-08-25] MEDS: MULTIVIT/MIN/PREN/FOL AC/IRON TABLET 1 TAB PO (09:42)
[2024-08-25] MEDS: DOCUSATE SODIUM 100 MG CAPSULE PO (09:42)
[2024-08-25] MEDS: MEASLES,MUMPS,RUBELLA VACCINE 0.5 ML VIAL SUB-Q (09:42)
--- NOTE | 2024-08-25 10:35 | P.PNOB_ITS ---
OB - PN: Subj Subjective Date/time seen: 08/25/24 10:35 Patient comments: no complaints, pain well controlled and tolerating diet OB - PN: Obj Data Labs 08/24/24 02:56 OB - PN A/P Plan day: 2 Plan: routine care and discharge home Time Spent With Patient Time: Total time spent is greater than 50% in coordination of care (as documented) at patient's floor/unit and/or counseling patient: Exam 2 Const: General: comfortable and no acute distress Resp: Effort & Inspection: normal respiratory effort Auscultation: no rales, no rhonchi and no wheezes Cardio: Rate: regular rate Heart sounds: no click, no murmurs and no rubs GI: GI Palp: Yes Soft to palpation and No Tenderness to palpation present (GI) Auscultation: normal bowel sounds Extrem: General: normal to inspection, no pedal edema and no calf tenderness
--- NOTE | 2024-08-25 10:36 | PM.OBDSVD ---
DS: Admitting Diagnosis Discharge Date 08/25/2024 Admitting Diagnosis Term DS: Discharge Diagnosis Discharge Diagnosis (1) Term delivered: Code(s): O80 - Encounter for full-term uncomplicated delivery Status: Acute OB - DS: Summary OB Procedures : None OB Procedures Intrapartum: Spontaneous Vag Delivery OB Procedures: : None Peripartum Data Laceration Description: Superficial Episiotomy description: None Time Spent with Patient Time attestation: Total time spent providing and/or coordinating discharge services: Discharge Plan Discharge Discharging Clinician: Sharath Landaverde Patient Disposition: Home Activity: pelvic rest Diet: regular Patient Instructions: Antibiotic Form Patient Language: Nepalese Stand Alone Forms: General Discharge Information Follow-up/Referrals: Sharath Landaverde MD [Physician] - Discharge Medications: No Action No Home Medications Date of admission: 08/23/24 04:53 Primary Care Provider: UNKNOWN,DOCTOR Admitting Provider: Sharath Landaverde Attending physician on admission: Naomi Humphrey Condition: Stable
[2024-08-27 09:42] VITALS: BP 128/85; PULSE 78; RESP 18; TEMP 37.1; O2SAT 100
== END 2024-08-25 13:11 | disposition home or self-care (01) | DRG 807 ==
LOC: ANHLDR 04:56 → ANHOB2 23:13
PROVIDERS: Admitting Provider Obstetrics & Gynecology; Visit Provider Advanced Practice Midwife
DX: O70.0 First degree perineal laceration during delivery (principal); Z37.0 Single live birth; Z3A.39 39 weeks gestation of pregnancy
CPT/HCPCS: 36415; 85014; 85018; 85025; 86593; 86703; 86850; 86900; 86901; 90710; 90715; A9270; G0432; J2590; J7120